=== PATIENT | male | born 1980 | race Caucasian/White ===

== ENCOUNTER 2016-06-05 18:39 | Emergency (ER) | payer MEDICAID ==
--- NOTE | 2016-06-05 19:42 | EDM.PDOC ---
ED HPI Trauma - General Chief Complaint: Lower Extremity Injury/Pain Stated Complaint: PT HURT LT ANKLE Time Seen by Provider: 06/05/16 19:36 Source: Reports: Patient History Limitations: Reports: No limitations - History of Present Illness INITIAL COMMENTS - FREE TEXT/NARRATIVE: History of present illness: [35-year-old male presenting with complaints of pain to left foot and ankle. Patient indicates that he has been having pain and swelling with this foot and ankle for greater than 3 weeks. Patient indicates that in fact when it becomes swollen that the muscles contract and pull his toes and dorsal flexion type posture it is even more painful.] Review of systems: As per history of present illness and below otherwise all systems reviewed and negative. Past medical history: As per history of present illness and as reviewed below otherwise noncontributory. Surgical history: As per history of present illness and as reviewed below otherwise noncontributory. Social history: No reported history of drug or alcohol abuse. Family history: As per history of present illness and as reviewed below otherwise noncontributory. Physical exam: HEENT: Atraumatic, normocephalic, pupils reactive, negative for conjunctival pallor or scleral icterus, mucous membranes moist, throat clear, neck supple, nontender, trachea midline. Lungs: Clear to auscultation, breath sounds equal bilaterally, chest nontender. Heart: S1S2, regular, negative for clicks, rubs, or JVD. Abdomen: Soft, nondistended, nontender. Negative for masses or hepatosplenomegaly. Negative for costovertebral tenderness. Pelvis: Stable nontender. Genitourinary: Deferred. Rectal: Deferred. Extremities: Atraumatic, negative for cords or calf pain. Neurovascular unremarkable. Neuro: Awake, alert, oriented. Cranial nerves II through XII unremarkable. Cerebellum unremarkable. Motor and sensory unremarkable throughout. Exam nonfocal. Of note peripheral pulses are palpable with DPs and PTs noted to be put presents with foot warm with CMST intact Diagnostics: [X-ray left foot] Therapeutics: [Toradol 60 mg IM] Impression: [Tarsal coalition] Plan: [Walking boot referral to orthopedic] Definitive disposition and diagnosis as appropriate pending reevaluation and review of above. Allergies/ADRs: Allergies ceftriaxone sodium [From Rocephin] Allergy (Verified 06/05/16 18:49) Hives levofloxacin [From Levaquin] Allergy (Verified 06/05/16 18:49) Cannot Remember tetanus and diphtheria toxoids [tetanus & diphtheria toxoids] Allergy (Verified 06/05/16 18:49) Swelling Home Medications: Ambulatory Orders . [No Known Home Meds] 06/05/16 [Confirmed 06/05/16] Past Medical History - Past Health History Medical/Surgical History: Denies Medical/Surgical History Cardiovascular History: Reports: None Respiratory History: Reports: Asthma Gastrointestinal History: Genitourinary History: Reports: None Musculoskeletal History: Reports: Back pain, chronic Neurological History: Reports: None Psychiatric History: Reports: Anxiety, Depression Endocrine/Metabolic History: Reports: Obesity/BMI 30+ Hematologic History: Reports: None Immunologic History: Reports: None Oncologic (Cancer) History: Reports: None Dermatologic History: Reports: None - Infectious Disease History Infectious Disease History: Reports: Chicken pox - Past Surgical History Head Surgeries/Procedures: Reports: None Other HEENT Surgeries/Procedures: facial cyst removed, ear surgery Social & Family History - Family History Family Medical History: Noncontributory - Tobacco Use Smoking Status *Q: Current Every Day Smoker Years of Tobacco use: 23 Packs/Tins Daily: 1 Second Hand Smoke Exposure: Yes - Caffeine Use Caffeine Use: Reports: Soda - Alcohol Use Days Per Week of Alcohol Use: 0 - Recreational Drug Use Recreational Drug Use: No - Living Situation & Occupation Living situation: Reports: Occupation: employed Review of Systems - Review of Systems Review Of Systems: See Below (The history of present illness) Trauma Exam - Physical Exam Exam: See Below (See history of present illness) Course - Vital Signs Last Recorded V/S: Last Vital Signs Temp 36.6 C 06/05/16 18:47 Pulse 86 06/05/16 18:47 Resp 16 06/05/16 18:47 BP 143/74 H 06/05/16 18:47 Pulse Ox 95 06/05/16 18:47 - Orders/Labs/Meds Orders: Active Orders 24 hr Category Date Time Status Ankle Min 3V Lt [CR] Stat Exams 06/05/16 18:57 Taken Meds: Medications Discontinued Medications Generic Name Dose Route Start Last Admin Trade Name Freq PRN Reason Stop Dose Admin Ketorolac Tromethamine 60 mg 06/05/16 20:16 Toradol IM 06/05/16 20:17 ONETIME ONE Departure - Departure Time of Disposition: 20:18 Disposition: Home, Self-Care 01 Condition: good 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 This information is to outline your options for follow-up care. We provide all patients seen in our emergency department with a follow-up referral. The need for follow-up, as well as the timing and circumstances, are variable depending upon the specifics of your emergency department visit. If you don't have a primary care physician on staff, we will provide you with a referral. We always advise you to contact your personal physician following an emergency department visit to inform them of the circumstance of the visit and for follow-up with them and/or the need for any referrals to a consulting specialist. The emergency department will also refer you to a specialist when appropriate. This referral assures that you have the opportunity for follow-up care with a specialist. All of these measure are taken in an effort to provide you with optimal care, which includes your follow-up. Under all circumstances we always encourage you to contact your private physician who remains a resource for coordinating your care. When calling for follow-up care, please make the office aware that this follow-up is from your recent emergency room visit. If for any reason you are refused follow-up, please contact the [facility] Emergency Department at and asked to speak to the emergency department charge nurse. Followup with primary care provider one to 2 days Take medication as directed for pain Followup with orthopedics for referral given Return to ED as needed as discussed [facility] [address], [address] [place] [address] - My Orders Last 24 Hours: My Active Orders 06/05/16 18:57 Ankle Min 3V Lt [CR] Stat - Assessment/Plan Last 24 Hours: My Active Orders 06/05/16 18:57 Ankle Min 3V Lt [CR] Stat
[2016-06-05] MEDS ORDERED: Ketorolac 60 MG/2 ML SDV IM ONE (20:16)
[2016-06-05 21:15] VITALS: BP 136/71
--- NOTE | 2016-06-06 15:55 | CR ---
EXAM DATE: 06/05/16 PATIENT'S AGE: 35 Patient: ANITA MOORE Facility: [place], [place] Site . Site : 1980 Study: XRay Extremity ankle [id number]/27/2017 7:23:20 PM Ordering Physician: Doctor Ocampo Final Report: Indication: Pain Technique: Three views of the left ankle Comparison: 12/08/2012 Findings: Bones: No acute fracture or dislocation. An indistinct subtalar joint and dorsal talar beaking again seen with apparent elongation of the anterior process of the calcaneus, concerning for tarsal coalition. A plantar calcaneal spur and a posterior calcaneal enthesophyte Joint spaces: Unremarkable. Soft tissues: Unremarkable. Impression: No acute fracture or dislocation. Findings concerning for tarsal coalition. Recommend followup evaluation. Dictated by Justin Anderson MD @ 06/05/2016 7:37:24 PM Dictated by: Justin Anderson MD @ 06/05/2016 19:37:33 (Electronic Signature) Report Signed by Proxy and Original Signed Document filed in the Medical Record. [facility]
== END 2016-06-05 21:15 | disposition home or self-care (01) ==
LOC: MW.ED 18:39
DX: Q66.89 Other specified congenital deformities of feet (principal); J45.909 Unspecified asthma, uncomplicated; F41.9 Anxiety disorder, unspecified; F32.9 Major depressive disorder, single episode, unspecified; E66.9 Obesity, unspecified; F17.210 Nicotine dependence, cigarettes, uncomplicated; Z88.1 Allergy status to other antibiotic agents; Z88.7 Allergy status to serum and vaccine
CPT/HCPCS: 73610; 96372; 99283; J1885

== ENCOUNTER 2016-08-06 00:34 | Emergency (ER) | payer MEDICAID ==
[2016-08-06] MEDS ORDERED: methylPREDNISolone Sodium Succinate 125 MG/2 ML SDV IVPUSH ONE (00:50)
[2016-08-06] MEDS ORDERED: Albuterol/Ipratropium 3.0-0.5 MG/3 ML Neb Soln NEB ONE (00:51)
[2016-08-06 01:14] LABS: CHLORIDE,CL 106 mmol/L (98-110); SODIUM,NA 139 mmol/L (136-146)
--- NOTE | 2016-08-06 01:57 | EDM.PDOC ---
ED HPI GENERAL MEDICAL PROBLEM - General Chief Complaint: Chest Pain Stated Complaint: CHEST PAIN Time Seen by Provider: 08/06/16 01:54 - History of Present Illness INITIAL COMMENTS - FREE TEXT/NARRATIVE: HISTORY AND PHYSICAL: History of present illness: Patient 36-year-old male she thinks her chest pain is vaguely described no associated nausea vomiting diaphoresis or other concern he denies trauma no fever chills or other complaints Review of systems: As per history of present illness and below otherwise all systems reviewed and negative. Past medical history: As per history of present illness and as reviewed below otherwise noncontributory. Surgical history: As per history of present illness and as reviewed below otherwise noncontributory. Social history: No reported history of drug or alcohol abuse. Family history: As per history of present illness and as reviewed below otherwise noncontributory. Physical exam: HEENT: Atraumatic, normocephalic, pupils reactive, negative for conjunctival pallor or scleral icterus, mucous membranes moist, throat clear, neck supple, nontender, trachea midline. Lungs: Scant wheezes noted, breath sounds equal bilaterally, chest nontender. Heart: S1S2, regular, negative for clicks, rubs, or JVD. Abdomen: Soft, nondistended, nontender. Negative for masses or hepatosplenomegaly. Negative for costovertebral tenderness. Pelvis: Stable nontender. Genitourinary: Deferred. Rectal: Deferred. Extremities: Atraumatic, negative for cords or calf pain. Neurovascular unremarkable. Neuro: Awake, alert, oriented. Cranial nerves II through XII unremarkable. Cerebellum unremarkable. Motor and sensory unremarkable throughout. Exam nonfocal. Diagnostics: CBC CMP troponin PT INR chest x-ray EKG Therapeutics: IV O2 monitor Impression: #1 chest pain #2 history of asthma Definitive disposition and diagnosis as appropriate pending reevaluation and review of above. - Related Data Allergies Allergy/AdvReac Type Severity Reaction Status Date / Time ceftriaxone sodium Allergy Hives Verified 08/06/16 00:50 [From Rocephin] levofloxacin [From Levaquin] Allergy Cannot Verified 08/06/16 00:50 Remember tetanus and diphtheria Allergy Swelling Verified 08/06/16 00:50 toxoids [tetanus & diphtheria toxoids] Home Meds: Home Meds . [No Known Home Meds] 02/27/17 [History] Past Medical History - Past Health History Medical/Surgical History: Denies Medical/Surgical History Cardiovascular History: Reports: None Respiratory History: Reports: Asthma Gastrointestinal History: Genitourinary History: Reports: None Musculoskeletal History: Reports: Back pain, chronic Neurological History: Reports: None Psychiatric History: Reports: Anxiety, Depression Endocrine/Metabolic History: Reports: Obesity/BMI 30+ Hematologic History: Reports: None Immunologic History: Reports: None Oncologic (Cancer) History: Reports: None Dermatologic History: Reports: None - Infectious Disease History Infectious Disease History: Reports: Chicken pox - Past Surgical History Head Surgeries/Procedures: Reports: None Other HEENT Surgeries/Procedures: facial cyst removed, ear surgery Social & Family History - Family History Family Medical History: Noncontributory - Tobacco Use Smoking Status *Q: Current Every Day Smoker Years of Tobacco use: 20 Packs/Tins Daily: 1 Second Hand Smoke Exposure: Yes - Caffeine Use Caffeine Use: Reports: Energy drinks Caffeine Use Comment: "2 every 2 weeks" - Alcohol Use Days Per Week of Alcohol Use: 0 - Recreational Drug Use Recreational Drug Use: No - Living Situation & Occupation Living situation: Reports: Occupation: employed ED ROS GENERAL - Review of Systems Review Of Systems: ROS reveals no pertinent complaints other than HPI. ED EXAM, GENERAL - Physical Exam Exam: See Below (See dictated) Course - Vital Signs Last Recorded V/S: Last Vital Signs Temp 36.0 C 08/06/16 00:46 Pulse 88 08/06/16 00:46 Resp 19 08/06/16 00:46 BP 139/90 08/06/16 00:46 Pulse Ox 100 08/06/16 00:51 - Orders/Labs/Meds Orders: Active Orders 24 hr Category Date Time Status EKG Documentation Completion [RC] STAT Care 08/06/16 00:43 Active RT Aerosol Therapy [RC] ASDIRECTED Care 08/06/16 00:51 Active Chest 1V Frontal [CR] Stat Exams 08/06/16 00:44 Taken Labs: Laboratory Tests 08/06/16 08/06/16 08/06/16 Range/Units 00:40 00:40 01:35 WBC 10.31 (4.0-11.0) K/uL RBC 5.20 (4.50-5.90) M/uL Hgb 14.5 (13.0-17.0) g/dL Hct 44.2 (38.0-50.0) % MCV 85.0 (80.0-98.0) fL MCH 27.9 (27.0-32.0) pg MCHC 32.8 (31.0-37.0) g/dL RDW Std Deviation 41.5 (28.0-62.0) fl RDW Coeff of Ayesha 13 (11.0-15.0) % Plt Count 200 (150-400) K/uL MPV 12.10 H (7.40-12.00) fL Neut % (Auto) 39.9 L (48.0-80.0) % Lymph % (Auto) 46.9 H (16.0-40.0) % [place] % (Auto) 8.3 (0.0-15.0) % Eos % (Auto) 4.7 (0.0-7.0) % Baso % (Auto) 0.2 (0.0-1.5) % Neut # (Auto) 4.1 (1.4-5.7) K/uL Lymph # (Auto) 4.8 H (0.6-2.4) K/uL [place] # (Auto) 0.9 H (0.0-0.8) K/uL Eos # (Auto) 0.5 (0.0-0.7) K/uL Baso # (Auto) 0.0 (0.0-0.1) K/uL Sodium 139 (136-146) mmol/L Potassium 3.7 (3.5-5.1) mmol/L Chloride 106 (98-110) mmol/L Carbon Dioxide 23 (21-31) mmol/L BUN 8 (6.0-23.0) mg/dL Creatinine 0.8 (0.6-1.5) mg/dL Est Cr Clr Drug Dosing TNP Estimated GFR (MDRD) > 60.0 ml/min Glucose 138 H (60-110) mg/dL Calcium 9.4 (8.8-10.8) mg/dL Total Bilirubin 0.4 (0.1-1.5) mg/dL AST 75 H (5-40) IU/L ALT 89 H (8-54) IU/L Alkaline Phosphatase 109 (40-150) Creatine Kinase 133 (9-236) IU/L Troponin I < 0.10 (0.0-0.29) NG/ML Total Protein 7.4 (6.0-8.0) g/dL Albumin 4.2 (3.5-5.0) g/dL Globulin 3.2 (2.0-3.5) g/dL Albumin/Globulin Ratio 1.3 (1.3-2.8) Meds: Medications Discontinued Medications Generic Name Dose Route Start Last Admin Trade Name Jayesh PRN Reason Stop Dose Admin Albuterol/Ipratropium 3 ml 08/06/16 00:51 08/06/16 00:58 Duoneb 3.0-0.5 Mg/3 Ml NEB 08/06/16 00:52 3 ml ONETIME ONE Administration Methylprednisolone Sodium Succinate 125 mg 08/06/16 00:50 08/06/16 00:58 Solu-Medrol IVPUSH 08/06/16 00:51 125 mg ONETIME ONE Administration Departure - Departure Time of Disposition: 01:59 Disposition: Home, Self-Care 01 Condition: good Clinical Impression: Chest pain, Asthma Forms: ED Department Discharge Additional Instructions: The following information is given to patients seen in the emergency department who are being discharged to home. This information is to outline your options for follow-up care. We provide all patients seen in our emergency department with a follow-up referral. The need for follow-up, as well as the timing and circumstances, are variable depending upon the specifics of your emergency department visit. If you don't have a primary care physician on staff, we will provide you with a referral. We always advise you to contact your personal physician following an emergency department visit to inform them of the circumstance of the visit and for follow-up with them and/or the need for any referrals to a consulting specialist. The emergency department will also refer you to a specialist when appropriate. This referral assures that you have the opportunity for followup care with a specialist. All of these measure are taken in an effort to provide you with optimal care, which includes your followup. Under all circumstances we always encourage you to contact your private physician who remains a resource for coordinating your care. When calling for followup care, please make the office aware that this follow-up is from your recent emergency room visit. If for any reason you are refused follow-up, please contact the [facility] emergency department at and asked to speak to the emergency department charge nurse. Continue current meds follow up primary medical doctor within 2 days return as needed as discussed - My Orders Last 24 Hours: My Active Orders 08/06/16 00:43 EKG Documentation Completion [RC] STAT 08/06/16 00:44 Chest 1V Frontal [CR] Stat 08/06/16 00:51 RT Aerosol Therapy [RC] ASDIRECTED - Assessment/Plan Last 24 Hours: My Active Orders 08/06/16 00:43 EKG Documentation Completion [RC] STAT 08/06/16 00:44 Chest 1V Frontal [CR] Stat 08/06/16 00:51 RT Aerosol Therapy [RC] ASDIRECTED
[2016-08-06 11:11] VITALS: BP 143/83
--- NOTE | 2016-08-06 18:52 | CR ---
EXAM DATE: 08/06/16 PATIENT'S AGE: 36 Patient: ANITA MOORE Facility: [place], [place] Site . Site : 1980 Study: XRay Chest [id number]/30/2017 1:00:15 AM Ordering Physician: Doctor Ocampo Final Report: HISTORY: Chest pain x1 hour. FINDINGS: AP portable chest radiograph demonstrates a normal cardiac silhouette. Pulmonary vasculature and xenia are normal. No lobar consolidation or pleural effusion is seen. IMPRESSION: No acute cardiopulmonary disease. Dictated by Zabrina Reich MD @ 08/06/2016 1:14:34 AM Dictated by: Zabrina Reich MD @ 08/06/2016 01:14:41 (Electronic Signature) Report Signed by Proxy. [facility]
== END 2016-08-06 02:15 | disposition home or self-care (01) ==
LOC: MW.ED 00:34
DX: R07.9 Chest pain, unspecified (principal); J45.909 Unspecified asthma, uncomplicated; F41.9 Anxiety disorder, unspecified; F32.9 Major depressive disorder, single episode, unspecified; E66.9 Obesity, unspecified; F17.210 Nicotine dependence, cigarettes, uncomplicated; Z88.1 Allergy status to other antibiotic agents; Z88.7 Allergy status to serum and vaccine
CPT/HCPCS: 71010; 80053; 82550; 84484; 85025; 93005; 94664; 96374; 99285; J2930; 99283

== ENCOUNTER 2016-10-15 00:05 | Emergency (ER) | payer MEDICAID ==
--- NOTE | 2016-10-15 00:42 | EDM.PDOC ---
ED HPI GENERAL MEDICAL PROBLEM - General Chief Complaint: Bite:Animal, Insect Stated Complaint: BITE ON LEFT KNEE Time Seen by Provider: 10/15/16 00:39 Source of Information: Reports: Patient - History of Present Illness INITIAL COMMENTS - FREE TEXT/NARRATIVE: HISTORY AND PHYSICAL: History of present illness: Patient presents with bite lesion on the left medial knee it is dark red and itching her ears no fluctuance no stinger appreciated has been itching him for a couple of days he has put Benadryl cream on without much benefit Lesion is approximately the size of a dime No fever nausea vomiting chills while sweats no lip swelling tongue swelling or oral pharyngeal edema Review of systems: As per history of present illness and below otherwise all systems reviewed and negative. Past medical history: As per history of present illness and as reviewed below otherwise noncontributory. Surgical history: As per history of present illness and as reviewed below otherwise noncontributory. Social history: No reported history of drug or alcohol abuse. Family history: As per history of present illness and as reviewed below otherwise noncontributory. Physical exam: HEENT: Atraumatic, normocephalic, pupils reactive, negative for conjunctival pallor or scleral icterus, mucous membranes moist, throat clear, neck supple, nontender, trachea midline. No lip swelling tongue swelling or oral pharyngeal edema Lungs: Clear to auscultation, breath sounds equal bilaterally, chest nontender. Heart: S1S2, regular, negative for clicks, rubs, or JVD. Abdomen: Soft, nondistended, nontender. Negative for masses or hepatosplenomegaly. Negative for costovertebral tenderness. Pelvis: Stable nontender. Genitourinary: Deferred. Rectal: Deferred. Extremities: Atraumatic, negative for cords or calf pain. Neurovascular unremarkable. Neuro: Awake, alert, oriented. Cranial nerves II through XII unremarkable. Cerebellum unremarkable. Motor and sensory unremarkable throughout. Exam nonfocal. Skin as per history of present illness otherwise unremarkable Diagnostics: [] Therapeutics: []Benadryl 50 mg every 6 hours as needed Zantac 150 milligrams by mouth twice a day as needed Keflex 500 by mouth twice a day #20 no refill Impression: []Insect bite with inflammatory reaction Definitive disposition and diagnosis as appropriate pending reevaluation and review of above. - Related Data Allergies Allergy/AdvReac Type Severity Reaction Status Date / Time ceftriaxone sodium Allergy Other Verified 10/15/16 00:30 [From Rocephin] levofloxacin [From Levaquin] Allergy Hives Verified 10/15/16 00:30 tetanus and diphtheria Allergy Swelling Verified 08/06/16 00:50 toxoids [tetanus & diphtheria toxoids] Home Meds: Home Meds . [No Known Home Meds] 06/05/16 [History] Past Medical History - Past Health History Medical/Surgical History: Denies Medical/Surgical History HEENT History: Reports: None Cardiovascular History: Reports: None Respiratory History: Reports: Asthma Gastrointestinal History: Reports: None Genitourinary History: Reports: None Musculoskeletal History: Reports: Back Pain, Chronic Neurological History: Reports: None Psychiatric History: Reports: Anxiety, Depression Endocrine/Metabolic History: Reports: Obesity/BMI 30+ Hematologic History: Reports: None Immunologic History: Reports: None Oncologic (Cancer) History: Reports: None Dermatologic History: Reports: None - Infectious Disease History Infectious Disease History: Reports: Measles, Mumps - Past Surgical History Head Surgeries/Procedures: Reports: None HEENT Surgical History: Reports: Myringotomy w Tube(s) Other GI Surgeries/Procedures: fistulotomy Social & Family History - Family History Family Medical History: Noncontributory - Tobacco Use Smoking Status *Q: Current Every Day Smoker Years of Tobacco use: 25 Packs/Tins Daily: 1 Second Hand Smoke Exposure: Yes - Caffeine Use Caffeine Use: Reports: Soda Caffeine Use Comment: 52 ounces/day - Alcohol Use Days Per Week of Alcohol Use: 0 - Recreational Drug Use Recreational Drug Use: No - Living Situation & Occupation Living situation: Reports: Occupation: Employed ED ROS GENERAL - Review of Systems Review Of Systems: ROS reveals no pertinent complaints other than HPI. ED EXAM, ANIMAL BITE - Physical Exam Exam: See Below Course - Vital Signs Last Recorded V/S: Last Vital Signs Temp 36.1 C 10/15/16 00:30 Pulse 82 10/15/16 00:30 Resp 19 10/15/16 00:30 BP 131/76 10/15/16 00:30 Pulse Ox 97 10/15/16 00:30 Departure - Departure Time of Disposition: 00:41 Disposition: Home, Self-Care 01 Condition: Good Clinical Impression: Insect bite - Discharge Information Forms: ED Department Discharge Additional Instructions: Benadryl 50 mg every 6 hours as needed Zantac 150 milligrams 2 times daily as needed Calamine lotion may benefit Keflex 500 mg by mouth twice a day #20 no refill Return if symptoms persist or worsen Follow-up with primary care in 2 weeks The following information is given to patients seen in the emergency department who are being discharged to home. This information is to outline your options for follow-up care. We provide all patients seen in our emergency department with a follow-up referral. The need for follow-up, as well as the timing and circumstances, are variable depending upon the specifics of your emergency department visit. If you don't have a primary care physician on staff, we will provide you with a referral. We always advise you to contact your personal physician following an emergency department visit to inform them of the circumstance of the visit and for follow-up with them and/or the need for any referrals to a consulting specialist. The emergency department will also refer you to a specialist when appropriate. This referral assures that you have the opportunity for follow-up care with a specialist. All of these measure are taken in an effort to provide you with optimal care, which includes your follow-up. Under all circumstances we always encourage you to contact your private physician who remains a resource for coordinating your care. When calling for follow-up care, please make the office aware that this follow-up is from your recent emergency room visit. If for any reason you are refused follow-up, please contact the [facility] emergency department at and asked to speak to the emergency department charge nurse.
== END 2016-10-15 01:10 | disposition home or self-care (01) ==
LOC: MW.ED 00:05
CPT/HCPCS: 99282

== ENCOUNTER 2016-10-17 22:58 | Emergency (ER) | payer MEDICAID ==
[2016-10-17] MEDS ORDERED: Sodium Chloride 0.9% 1,000 ML IV ONE (23:29)
[2016-10-17] MEDS ORDERED: Ondansetron 4 MG/2 ML SDV IVPUSH ONE (23:29)
[2016-10-17] MEDS ORDERED: Ketorolac 30 MG/ML SDV IVPUSH ONE (23:29)
--- NOTE | 2016-10-17 23:30 | EDM.PDOC ---
ED HPI GENERAL MEDICAL PROBLEM - General Chief Complaint: Neuro Symptoms/Deficits Stated Complaint: PT HAS BLURRED VISION Time Seen by Provider: 10/17/16 23:29 Source of Information: Reports: Patient - History of Present Illness INITIAL COMMENTS - FREE TEXT/NARRATIVE: HISTORY AND PHYSICAL: History of present illness: []Patient has right unilateral headache over the last 3 days it has improved with ibuprofen to resolved along with sleep, some light noise sensitivity generally beginning with aura of visualizing white triangles as well as spots and floaters Headache is 4 out of 10 right unilateral none radiating No fever nausea vomiting chills sweats no chest pain shortness of breath dizziness or palpitation no bowel or urine symptoms Review of systems: As per history of present illness and below otherwise all systems reviewed and negative. Past medical history: As per history of present illness and as reviewed below otherwise noncontributory. Surgical history: As per history of present illness and as reviewed below otherwise noncontributory. Social history: No reported history of drug or alcohol abuse. Family history: As per history of present illness and as reviewed below otherwise noncontributory. Physical exam: HEENT: Atraumatic, normocephalic, pupils reactive, negative for conjunctival pallor or scleral icterus, mucous membranes moist, throat clear, neck supple, nontender, trachea midline. Lungs: Clear to auscultation, breath sounds equal bilaterally, chest nontender. Heart: S1S2, regular, negative for clicks, rubs, or JVD. Abdomen: Soft, nondistended, nontender. Negative for masses or hepatosplenomegaly. Negative for costovertebral tenderness. Pelvis: Stable nontender. Genitourinary: Deferred. Rectal: Deferred. Extremities: Atraumatic, negative for cords or calf pain. Neurovascular unremarkable. Neuro: Awake, alert, oriented. Cranial nerves II through XII unremarkable. Cerebellum unremarkable. Motor and sensory unremarkable throughout. Exam nonfocal. Diagnostics: []CBC, CMP, UA Head CT Therapeutics: []1 L normal saline bolus Zofran 8 mg IV Toradol 30 mg IV Patient generally requires spectacles but does not use them Follow-up with senior grant writer and primary care Impression: []Migraine with aura Definitive disposition and diagnosis as appropriate pending reevaluation and review of above. Right side headache Pain Score (Numeric/FACES): 5 - Related Data Allergies Allergy/AdvReac Type Severity Reaction Status Date / Time ceftriaxone sodium Allergy Other Verified 10/17/16 23:17 [From Rocephin] levofloxacin [From Levaquin] Allergy Hives Verified 10/17/16 23:17 tetanus and diphtheria Allergy Swelling Verified 10/17/16 23:17 toxoids [tetanus & diphtheria toxoids] Home Meds: Home Meds . [No Known Home Meds] 06/05/16 [History] Past Medical History - Past Health History Medical/Surgical History: Denies Medical/Surgical History HEENT History: Reports: Impaired Vision Cardiovascular History: Reports: None Respiratory History: Reports: Asthma Gastrointestinal History: Reports: None Genitourinary History: Reports: None Musculoskeletal History: Reports: Back Pain, Chronic Neurological History: Reports: Migraines, Seizure Psychiatric History: Reports: Anxiety, Depression Endocrine/Metabolic History: Reports: Obesity/BMI 30+ Hematologic History: Reports: None Immunologic History: Reports: None Oncologic (Cancer) History: Reports: None Dermatologic History: Reports: None - Infectious Disease History Infectious Disease History: Reports: Measles, Mumps - Past Surgical History Head Surgeries/Procedures: Reports: None HEENT Surgical History: Reports: Myringotomy w Tube(s) Other GI Surgeries/Procedures: fistulotomy Social & Family History - Family History Family Medical History: Noncontributory - Tobacco Use Smoking Status *Q: Current Every Day Smoker Years of Tobacco use: 20 Packs/Tins Daily: 1 Second Hand Smoke Exposure: Yes - Caffeine Use Caffeine Use: Reports: Soda Caffeine Use Comment: 52 ounces/day - Alcohol Use Days Per Week of Alcohol Use: 0 - Recreational Drug Use Recreational Drug Use: No - Living Situation & Occupation Living situation: Reports: Occupation: Employed ED ROS GENERAL - Review of Systems Review Of Systems: ROS reveals no pertinent complaints other than HPI. ED EXAM, GENERAL - Physical Exam Exam: See Below Course - Vital Signs Last Recorded V/S: Last Vital Signs Temp 36.4 C 10/17/16 23:18 Pulse 85 10/17/16 23:18 Resp 18 10/17/16 23:18 BP 138/91 H 10/17/16 23:18 Pulse Ox 97 10/17/16 23:18 - Orders/Labs/Meds Orders: Active Orders 24 hr Category Date Time Status Head wo Cont [CT] Stat Exams 10/17/16 23:29 Taken Meds: Medications Discontinued Medications Generic Name Dose Route Start Last Admin Trade Name Jayesh PRN Reason Stop Dose Admin Sodium Chloride 1,000 mls @ 999 mls/hr 10/17/16 23:29 10/17/16 23:40 Normal Saline IV 10/18/16 00:29 999 mls/hr STAT ONE Administration Ketorolac Tromethamine 30 mg 10/17/16 23:29 10/17/16 23:45 Toradol IVPUSH 10/17/16 23:30 30 mg ONETIME ONE Administration Ondansetron HCl 8 mg 10/17/16 23:29 10/17/16 23:40 Zofran IVPUSH 10/17/16 23:30 8 mg ONETIME ONE Administration Departure - Departure Time of Disposition: 00:29 Disposition: Home, Self-Care 01 Condition: Good Clinical Impression: Migraine - Discharge Information Forms: ED Department Discharge Additional Instructions: Continue ibuprofen as needed Sometimes caffeine may benefit such as drinking a Coke or cup of coffee Follow-up with primary care in 2 weeks sooner as needed as there are more specific treatments for migraine Recommend following up with senior grant writer for a new prescription as this may contribute as well The following information is given to patients seen in the emergency department who are being discharged to home. This information is to outline your options for follow-up care. We provide all patients seen in our emergency department with a follow-up referral. The need for follow-up, as well as the timing and circumstances, are variable depending upon the specifics of your emergency department visit. If you don't have a primary care physician on staff, we will provide you with a referral. We always advise you to contact your personal physician following an emergency department visit to inform them of the circumstance of the visit and for follow-up with them and/or the need for any referrals to a consulting specialist. The emergency department will also refer you to a specialist when appropriate. This referral assures that you have the opportunity for follow-up care with a specialist. All of these measure are taken in an effort to provide you with optimal care, which includes your follow-up. Under all circumstances we always encourage you to contact your private physician who remains a resource for coordinating your care. When calling for follow-up care, please make the office aware that this follow-up is from your recent emergency room visit. If for any reason you are refused follow-up, please contact the [facility] emergency department at and asked to speak to the emergency department charge nurse. - My Orders Last 24 Hours: My Active Orders 10/17/16 23:29 Head wo Cont [CT] Stat - Assessment/Plan Last 24 Hours: My Active Orders 10/17/16 23:29 Head wo Cont [CT] Stat
[2016-10-18 00:41] VITALS: BP 116/60
--- NOTE | 2016-10-18 10:52 | CT ---
EXAM DATE: 10/17/16 PATIENT'S AGE: 36 Patient: ANITA MOORE Facility: [place], [place] Site . Site : 1980 Study: CT Head [id number]/[id number] 12:14:41 AM Ordering Physician: Doctor Ocampo Final Report: INDICATION: Blurred vision, headache TECHNIQUE: CT head without contrast. COMPARISON: None FINDINGS: CSF spaces: Within normal limits for age. Brain parenchyma: The corona-white differentiation is normal. No sign of mass, hemorrhage, or midline shift. Skull base and calvarium: The visualized paranasal sinuses and mastoid air cells demonstrate no acute or significant findings. The visualized orbits are grossly unremarkable. No skull fractures. IMPRESSION: Unremarkable noncontrast head CT. Please note that all CT scans at this facility use dose modulation, iterative reconstruction, and/or weight-based dosing when appropriate to reduce radiation dose to as low as reasonably achievable. Dictated by Sondra Knight MD @ Oct 18 2016 12:20AM (Electronic Signature) Report Signed by Proxy. RODRIGO
== END 2016-10-18 00:45 | disposition home or self-care (01) ==
LOC: MW.ED 22:58
DX: G43.109 Migraine with aura, not intractable, without status migrainosus (principal); J45.909 Unspecified asthma, uncomplicated; F17.210 Nicotine dependence, cigarettes, uncomplicated; E66.9 Obesity, unspecified; Z96.22 Myringotomy tube(s) status; Z88.7 Allergy status to serum and vaccine; Z98.890 Other specified postprocedural states; Z88.1 Allergy status to other antibiotic agents
CPT/HCPCS: 70450; 96361; 96374; 96375; 99284; J1885; J2405; J7040; 99283

== ENCOUNTER 2017-01-12 15:12 | Emergency (ER) | payer MEDICAID ==
[2017-01-12 15:27] VITALS: BP 144/82
--- NOTE | 2017-01-12 16:29 | EDM.PDOC ---
ED HPI GENERAL MEDICAL PROBLEM - General Chief Complaint: Bite:Animal, Insect Stated Complaint: SPIDER BITE Time Seen by Provider: 01/12/17 15:51 - History of Present Illness INITIAL COMMENTS - FREE TEXT/NARRATIVE: HISTORY AND PHYSICAL: History of present illness: The patient is a 36-year-old male with no significant past medical history who is a transgender male and presents with complaints of possible bug bite to the area adjacent to his scrotum on the right that happened 5-6 days ago. The patient says he recalls the pain she like sensation at the onset but there was no redness or swelling and over the last few days it has gotten more swollen. He tried to squeeze the area last evening and nothing came out. He has no testicular pain or swelling no swelling of lymph nodes and no new redness is noted in the region. Patient states he does have chafing of the inner thighs which is not new or different. He has no systemic complaints of fever chills nausea vomiting diarrhea or dysuria says he's had some diffuse muscle aches and pains over the last 24 hours. Review of systems: As per history of present illness and below otherwise all systems reviewed and negative. Past medical history: As per history of present illness and as reviewed below otherwise noncontributory. Surgical history: As per history of present illness and as reviewed below otherwise noncontributory. Social history: No reported history of drug or alcohol abuse. Family history: As per history of present illness and as reviewed below otherwise noncontributory. Physical exam: General: Well-developed well-nourished man who is nontoxic and vital signs have been reviewed by me. HEENT: Atraumatic, normocephalic, negative for conjunctival pallor or scleral icterus, mucous membranes moist, throat clear, neck supple, nontender, trachea midline. Lungs: Clear to auscultation, breath sounds equal bilaterally, chest nontender. Heart: S1S2, regular in rhythm no overt murmurs Abdomen: Soft, nondistended, nontender. NABS Pelvis: Stable nontender. Genitourinary: Testicles are small and descended bilaterally and there is no evidence of any redness or erythema or induration of the scrotum bilaterally. Just to the right of the scrotum there is a small open area with some fibrinous material seen and at the surround there is a walnut-sized area of induration which is nonfluctuant and minimally tender. There is no inguinal adenopathy. This area is very well demarcated and does not extend into the gross perineum and there is no perineal erythema and there is no crepitance in this area. There is no extension of this induration into the perineum. There is some chronic skin changes seen throughout the peritoneum indicative of more of a candidal like reaction and the patient says that this is not new Rectal: Deferred. Extremities: Atraumatic, negative for cords or calf pain. Neurovascular unremarkable. Neuro: Awake, alert, oriented. Cranial nerves II through XII unremarkable. Cerebellum unremarkable. Motor and sensory unremarkable throughout. Exam nonfocal. Diagnostics: [] Therapeutics: [] I discussed with the patient wound care and conservative management including antibiotics its baths and return to ER if the area comes up more to a head to allow incision and drainage. At this point there is no fluctuance and no signs of any gross infection and ID will likely not be beneficial but I have warned the patient that with antibiotics this could change and if it starts coming up more to a soft head that he should return immediately for I&D. He states understanding. Impression: Perineal/ lateral scrotal cellulitis/induration early abscess Definitive disposition and diagnosis as appropriate pending reevaluation and review of above. Perineal Area Pain Score (Numeric/FACES): 8 - Related Data Allergies Allergy/AdvReac Type Severity Reaction Status Date / Time ceftriaxone sodium Allergy Other Verified 01/12/17 15:27 [From Rocephin] levofloxacin [From Levaquin] Allergy Hives Verified 01/12/17 15:27 tetanus and diphtheria Allergy Swelling Verified 01/12/17 15:27 toxoids [tetanus & diphtheria toxoids] Home Meds: Home Meds Estradiol Cypionate 1 gm IM WEEKLY 01/12/17 [History] Spironolactone [Aldactone] 25 mg PO DAILY 01/12/17 [History] Past Medical History - Past Health History Medical/Surgical History: Denies Medical/Surgical History HEENT History: Reports: Impaired Vision Cardiovascular History: Reports: None Respiratory History: Reports: Asthma Gastrointestinal History: Reports: None Genitourinary History: Reports: None Musculoskeletal History: Reports: Back Pain, Chronic Neurological History: Reports: Migraines, Seizure Psychiatric History: Reports: Anxiety, Depression Endocrine/Metabolic History: Reports: Obesity/BMI 30+ Hematologic History: Reports: None Immunologic History: Reports: None Oncologic (Cancer) History: Reports: None Dermatologic History: Reports: None - Infectious Disease History Infectious Disease History: Reports: Chicken Pox, Measles, Mumps - Past Surgical History Head Surgeries/Procedures: Reports: None HEENT Surgical History: Reports: Myringotomy w Tube(s) GI Surgical History: Reports: Other (See Below) Other GI Surgeries/Procedures: fistulotomy Social & Family History - Family History Family Medical History: Noncontributory - Tobacco Use Smoking Status *Q: Current Every Day Smoker Years of Tobacco use: 24 Packs/Tins Daily: 1 Second Hand Smoke Exposure: Yes - Caffeine Use Caffeine Use: Reports: Energy Drinks, Soda Caffeine Use Comment: 52 ounces/day - Alcohol Use Days Per Week of Alcohol Use: 0 - Recreational Drug Use Recreational Drug Use: No - Living Situation & Occupation Living situation: Reports: Occupation: Employed ED ROS GENERAL - Review of Systems Review Of Systems: ROS reveals no pertinent complaints other than HPI. ED EXAM, ANIMAL BITE - Physical Exam Exam: See Below (See dictation) Course - Vital Signs Last Recorded V/S: Last Vital Signs Temp 34.8 C L 01/12/17 15:23 Pulse 114 H 01/12/17 15:23 Resp 12 01/12/17 15:23 BP 144/82 H 01/12/17 15:23 Pulse Ox 96 01/12/17 15:23 Departure - Departure Time of Disposition: 16:29 Disposition: Home, Self-Care 01 Condition: Good Clinical Impression: Cellulitis Qualifiers: Site of cellulitis: other site Qualified Code(s): L03.818 - Cellulitis of other sites - Discharge Information Referrals: PCP,None [Primary Care Provider] - Additional Instructions: The following information is given to patients seen in the emergency department who are being discharged to home. This information is to outline your options for follow-up care. We provide all patients seen in our emergency department with a follow-up referral. The need for follow-up, as well as the timing and circumstances, are variable depending upon the specifics of your emergency department visit. If you don't have a primary care physician on staff, we will provide you with a referral. We always advise you to contact your personal physician following an emergency department visit to inform them of the circumstance of the visit and for follow-up with them and/or the need for any referrals to a consulting specialist. The emergency department will also refer you to a specialist when appropriate. This referral assures that you have the opportunity for followup care with a specialist. All of these measure are taken in an effort to provide you with optimal care, which includes your followup. Under all circumstances we always encourage you to contact your private physician who remains a resource for coordinating your care. When calling for followup care, please make the office aware that this follow-up is from your recent emergency room visit. If for any reason you are refused follow-up, please contact the [facility] emergency department at and ask to speak to the emergency department charge nurse. [facility] Primary care- Internal Medicine and Family [address] [address] Please cleanse the area as we discussed and try to keep it open to air as much as possible. Do not manipulate the area or squeeze it. Take medications as prescribed and if the area seems to be coming up to a head return to ER for drainage. Please return to ER as needed and as we discussed.
== END 2017-01-12 16:46 | disposition home or self-care (01) ==
LOC: MW.ED 15:12
DX: L03.315 Cellulitis of perineum (principal); N49.2 Inflammatory disorders of scrotum; E66.9 Obesity, unspecified; Z88.1 Allergy status to other antibiotic agents; Z79.899 Other long term (current) drug therapy; J45.909 Unspecified asthma, uncomplicated; F17.210 Nicotine dependence, cigarettes, uncomplicated; Z68.36 Body mass index [BMI] 36.0-36.9, adult
CPT/HCPCS: 99283

== ENCOUNTER 2017-03-01 20:38 | Emergency (ER) | payer MEDICAID ==
--- NOTE | 2017-03-01 21:12 | EDM.PDOC ---
ED HPI GENERAL MEDICAL PROBLEM - General Chief Complaint: Diabetic Complaint Stated Complaint: PT BLOOD SUGAR HIGH Time Seen by Provider: 03/01/17 21:08 - History of Present Illness INITIAL COMMENTS - FREE TEXT/NARRATIVE: HISTORY AND PHYSICAL: History of present illness: Patient 36-year-old white male who presents with a concern of recently diagnosed diabetes for medical screening exam patient denies any concern Review of systems: As per history of present illness and below otherwise all systems reviewed and negative. Past medical history: As per history of present illness and as reviewed below otherwise noncontributory. Surgical history: As per history of present illness and as reviewed below otherwise noncontributory. Social history: No reported history of drug or alcohol abuse. Family history: As per history of present illness and as reviewed below otherwise noncontributory. Physical exam: HEENT: Atraumatic, normocephalic, pupils reactive, negative for conjunctival pallor or scleral icterus, mucous membranes moist, throat clear, neck supple, nontender, trachea midline. Lungs: Clear to auscultation, breath sounds equal bilaterally, chest nontender. Heart: S1S2, regular, negative for clicks, rubs, or JVD. Abdomen: Soft, nondistended, nontender. Negative for masses or hepatosplenomegaly. Negative for costovertebral tenderness. Pelvis: Stable nontender. Genitourinary: Deferred. Rectal: Deferred. Extremities: Atraumatic, negative for cords or calf pain. Neurovascular unremarkable. Neuro: Awake, alert, oriented. Cranial nerves II through XII unremarkable. Cerebellum unremarkable. Motor and sensory unremarkable throughout. Exam nonfocal. Diagnostics: Blood glucose on arrival 201 Therapeutics: None Impression: 1 medical screening exam #2 history of newly diagnosed diabetes Definitive disposition and diagnosis as appropriate pending reevaluation and review of above. - Related Data Allergies Allergy/AdvReac Type Severity Reaction Status Date / Time ceftriaxone sodium Allergy Other Verified 01/12/17 15:27 [From Rocephin] levofloxacin [From Levaquin] Allergy Hives Verified 01/12/17 15:27 tetanus and diphtheria Allergy Swelling Verified 01/12/17 15:27 toxoids [tetanus & diphtheria toxoids] Home Meds: Home Meds Estradiol Cypionate 1 gm IM WEEKLY 01/12/17 [History] Spironolactone [Aldactone] 25 mg PO DAILY 01/12/17 [History] Progesterone,Micronized [Prometrium] 100 mg PO DAILY 03/01/17 [History] Past Medical History - Past Health History Medical/Surgical History: Denies Medical/Surgical History HEENT History: Reports: Impaired Vision Cardiovascular History: Reports: High Cholesterol Respiratory History: Reports: Asthma Gastrointestinal History: Reports: None Genitourinary History: Reports: None Musculoskeletal History: Reports: Back Pain, Chronic Neurological History: Reports: Migraines, Seizure Psychiatric History: Reports: Anxiety, Depression Endocrine/Metabolic History: Reports: Diabetes, Type II, Obesity/BMI 30+ Hematologic History: Reports: None Immunologic History: Reports: None Oncologic (Cancer) History: Reports: None Dermatologic History: Reports: None - Infectious Disease History Infectious Disease History: Reports: Chicken Pox, Measles, Mumps - Past Surgical History Head Surgeries/Procedures: Reports: None HEENT Surgical History: Reports: Myringotomy w Tube(s) GI Surgical History: Reports: Other (See Below) Other GI Surgeries/Procedures: fistulotomy x2 Social & Family History - Family History Family Medical History: Noncontributory - Tobacco Use Smoking Status *Q: Current Every Day Smoker Years of Tobacco use: 24 Packs/Tins Daily: 1 Second Hand Smoke Exposure: Yes - Caffeine Use Caffeine Use: Reports: Energy Drinks, Soda Caffeine Use Comment: 52 ounces/day - Alcohol Use Days Per Week of Alcohol Use: 0 - Recreational Drug Use Recreational Drug Use: No - Living Situation & Occupation Living situation: Reports: Occupation: Employed ED ROS GENERAL - Review of Systems Review Of Systems: ROS reveals no pertinent complaints other than HPI. ED EXAM GENERAL NO PERIP PULSE - Physical Exam Exam: See Below (dictation) Course - Vital Signs Last Recorded V/S: Last Vital Signs Temp 36.2 C 03/01/17 20:55 Pulse 105 H 03/01/17 20:55 Resp 16 03/01/17 20:55 BP 134/76 03/01/17 20:55 Pulse Ox 94 L 03/01/17 20:55 Departure - Departure Time of Disposition: 21:11 Disposition: Home, Self-Care 01 Condition: Good Clinical Impression: Encounter for medical screening examination, Hyperglycemia - Discharge Information Referrals: PCP,None [Primary Care Provider] - Additional Instructions: The following information is given to patients seen in the emergency department who are being discharged to home. This information is to outline your options for follow-up care. We provide all patients seen in our emergency department with a follow-up referral. The need for follow-up, as well as the timing and circumstances, are variable depending upon the specifics of your emergency department visit. If you don't have a primary care physician on staff, we will provide you with a referral. We always advise you to contact your personal physician following an emergency department visit to inform them of the circumstance of the visit and for follow-up with them and/or the need for any referrals to a consulting specialist. The emergency department will also refer you to a specialist when appropriate. This referral assures that you have the opportunity for followup care with a specialist. All of these measure are taken in an effort to provide you with optimal care, which includes your followup. Under all circumstances we always encourage you to contact your private physician who remains a resource for coordinating your care. When calling for followup care, please make the office aware that this follow-up is from your recent emergency room visit. If for any reason you are refused follow-up, please contact the [facility] emergency department at and asked to speak to the emergency department charge nurse. [facility] Primary [facility] [address] [place] [id number] Follow-up primary medical doctor and/or clinic above diet as discussed return as needed as discussed]
[2017-03-01 21:21] VITALS: BP 112/72
== END 2017-03-01 21:19 | disposition home or self-care (01) ==
LOC: EDSEX → MW.ED 20:38
DX: E11.65 Type 2 diabetes mellitus with hyperglycemia (principal); E78.00 Pure hypercholesterolemia, unspecified; F17.210 Nicotine dependence, cigarettes, uncomplicated; Z79.899 Other long term (current) drug therapy; Z88.1 Allergy status to other antibiotic agents; Z88.7 Allergy status to serum and vaccine
CPT/HCPCS: 82962; 99283

== ENCOUNTER 2017-03-06 11:51 | Emergency (ER) | payer MEDICAID, OTHER ==
--- NOTE | 2017-03-06 12:10 | EDM.PDOC ---
ED HPI GENERAL MEDICAL PROBLEM - General Chief Complaint: General Stated Complaint: FISTULA Time Seen by Provider: 03/06/17 11:52 Source of Information: Reports: Patient History Limitations: Reports: No Limitations - History of Present Illness INITIAL COMMENTS - FREE TEXT/NARRATIVE: History of present illness: []Patient is a transgender male who has a history of fistulectomy in August 2015. Patient started feeling increasing pain 2 days ago with fevers. Patient has not had a fever today but recognizes her symptoms and came in for check today. Review of systems: As per history of present illness and below otherwise all systems reviewed and negative. Past medical history: As per history of present illness and as reviewed below otherwise noncontributory. Surgical history: As per history of present illness and as reviewed below otherwise noncontributory. Social history: No reported history of drug or alcohol abuse. Family history: As per history of present illness and as reviewed below otherwise noncontributory. Physical exam: General: Well developed, well nourished in NAD HEENT: Atraumatic, normocephalic, pupils reactive, negative for conjunctival pallor or scleral icterus, mucous membranes moist, throat clear, neck supple, nontender, trachea midline. Lungs: Clear to auscultation, breath sounds equal bilaterally, chest nontender. Heart: S1S2, regular, negative for clicks, rubs, or JVD. Abdomen: Soft, nondistended, nontender. Negative for masses or hepatosplenomegaly. Negative for costovertebral tenderness. Pelvis: Stable nontender. Genitourinary: Deferred. Rectal: Right cheek superficial erythematous area approximately 4 x 4 centimeters with a half centimeter area of fluctuance without drainage. Extremities: Atraumatic, negative for cords or calf pain. Neurovascular unremarkable. Neuro: Awake, alert, oriented. Cranial nerves II through XII unremarkable. Cerebellum unremarkable. Motor and sensory unremarkable throughout. Exam nonfocal. Diagnostics: []CBC and blood cultures ordered wound culture was also sent of purulent fluid from needle aspirate of the abscess Therapeutics: [] Impression: []Abscess buttock right cheek Plan: []Sitz baths and Augmentin follow-up with PMD. Definitive disposition and diagnosis as appropriate pending reevaluation and review of above. Right Perineal Area Pain Score (Numeric/FACES): 7 - Related Data Allergies Allergy/AdvReac Type Severity Reaction Status Date / Time ceftriaxone sodium Allergy Other Verified 03/06/17 11:58 [From Rocephin] levofloxacin [From Levaquin] Allergy Hives Verified 03/06/17 11:58 tetanus and diphtheria Allergy Swelling Verified 03/06/17 11:58 toxoids [tetanus & diphtheria toxoids] Home Meds: Home Meds Estradiol Cypionate 1 gm IM WEEKLY 01/12/17 [History] Spironolactone [Aldactone] 25 mg PO DAILY 01/12/17 [History] Progesterone,Micronized [Prometrium] 100 mg PO DAILY 03/01/17 [History] Amoxicillin/Potassium Clav [Augmentin 875-125 Tablet] 1 each PO BID #20 tablet 03/06/17 [Rx] atorvaSTATin [Lipitor] 40 mg PO BEDTIME 03/06/17 [History] Past Medical History - Past Health History Medical/Surgical History: Denies Medical/Surgical History HEENT History: Reports: Impaired Vision Cardiovascular History: Reports: High Cholesterol Respiratory History: Reports: Asthma Gastrointestinal History: Reports: None Genitourinary History: Reports: None Musculoskeletal History: Reports: Back Pain, Chronic Neurological History: Reports: Migraines, Seizure Psychiatric History: Reports: Anxiety, Depression Endocrine/Metabolic History: Reports: Diabetes, Type II, Obesity/BMI 30+ Hematologic History: Reports: None Immunologic History: Reports: None Oncologic (Cancer) History: Reports: None Dermatologic History: Reports: None - Infectious Disease History Infectious Disease History: Reports: Chicken Pox, Measles, Mumps - Past Surgical History Head Surgeries/Procedures: Reports: None HEENT Surgical History: Reports: Myringotomy w Tube(s) GI Surgical History: Reports: Other (See Below) Other GI Surgeries/Procedures: fistulotomy x2 Social & Family History - Family History Family Medical History: Noncontributory - Tobacco Use Smoking Status *Q: Current Every Day Smoker Years of Tobacco use: 15 Packs/Tins Daily: 1 Second Hand Smoke Exposure: Yes - Caffeine Use Caffeine Use: Reports: Soda Caffeine Use Comment: 52 ounces/day - Alcohol Use Days Per Week of Alcohol Use: 0 - Recreational Drug Use Recreational Drug Use: No - Living Situation & Occupation Living situation: Reports: Occupation: Employed ED ROS GENERAL - Review of Systems Review Of Systems: See Below (See history of present illness) ED EXAM, GENERAL - Physical Exam Exam: See Below (See history of present illness) Course - Vital Signs Last Recorded V/S: Last Vital Signs Temp 36.1 C 03/06/17 12:04 Pulse 91 03/06/17 12:04 Resp 18 03/06/17 12:04 BP 138/80 03/06/17 12:04 Pulse Ox 99 03/06/17 12:04 - Orders/Labs/Meds Orders: Active Orders 24 hr Category Date Time Status BASIC METABOLIC PANEL,BMP [CHEM] Stat Lab 03/06/17 12:21 Received CBC WITH AUTO DIFF [HEME] Stat Lab 03/06/17 12:21 Received CULTURE BLOOD [BC] Stat Lab 03/06/17 12:11 Ordered CULTURE BLOOD [BC] Stat Lab 03/06/17 12:21 Received CULTURE WOUND [RM] Stat Lab 03/06/17 12:38 Uncollected Blood Culture x2 Reflex Set [OM.PC] Stat Oth 03/06/17 12:11 Ordered Meds: Medications Discontinued Medications Generic Name Dose Route Start Last Admin Trade Name Jayesh PRN Reason Stop Dose Admin Bupivacaine HCl 10 ml 03/06/17 12:27 03/06/17 12:36 Sensorcaine-Mpf 0.5% INJECT 03/06/17 12:28 10 ml ONETIME ONE Administration Lidocaine HCl 20 ml 03/06/17 12:27 03/06/17 12:36 Xylocaine 1% INJECT 03/06/17 12:28 20 ml ONETIME ONE Administration Departure - Departure Time of Disposition: 12:42 Disposition: Home, Self-Care 01 Condition: Good Clinical Impression: Abscess of buttock, right - Discharge Information Prescriptions: Amoxicillin/Potassium Clav [Augmentin 875-125 Tablet] 1 each PO BID #20 tablet Referrals: PCP,None [Primary Care Provider] - Forms: ED Department Discharge Additional Instructions: The following information is given to patients seen in the emergency department who are being discharged to home. This information is to outline your options for follow-up care. We provide all patients seen in our emergency department with a follow-up referral. The need for follow-up, as well as the timing and circumstances, are variable depending upon the specifics of your emergency department visit. If you don't have a primary care physician on staff, we will provide you with a referral. We always advise you to contact your personal physician following an emergency department visit to inform them of the circumstance of the visit and for follow-up with them and/or the need for any referrals to a consulting specialist. The emergency department will also refer you to a specialist when appropriate. This referral assures that you have the opportunity for follow-up care with a specialist. All of these measure are taken in an effort to provide you with optimal care, which includes your follow-up. Under all circumstances we always encourage you to contact your private physician who remains a resource for coordinating your care. When calling for follow-up care, please make the office aware that this follow-up is from your recent emergency room visit. If for any reason you are refused follow-up, please contact the [facility] at and asked to speak to the emergency department charge nurse. Continue sitz baths, take Augmentin as directed return here if symptoms change or worsen otherwise follow-up with primary care. [facility] [address] [place] [id number] - My Orders Last 24 Hours: My Active Orders 03/06/17 12:11 CULTURE BLOOD [BC] Stat Blood Culture x2 Reflex Set [OM.PC] Stat 03/06/17 12:21 BASIC METABOLIC PANEL,BMP [CHEM] Stat CBC WITH AUTO DIFF [HEME] Stat CULTURE BLOOD [BC] Stat 03/06/17 12:38 CULTURE WOUND [RM] Stat - Assessment/Plan Last 24 Hours: My Active Orders 03/06/17 12:11 CULTURE BLOOD [BC] Stat Blood Culture x2 Reflex Set [OM.PC] Stat 03/06/17 12:21 BASIC METABOLIC PANEL,BMP [CHEM] Stat CBC WITH AUTO DIFF [HEME] Stat CULTURE BLOOD [BC] Stat 03/06/17 12:38 CULTURE WOUND [RM] Stat
[2017-03-06] MEDS ORDERED: Lidocaine 1% 20 ML MDV INJECT ONE (12:27)
[2017-03-06] MEDS ORDERED: Bupivacaine 0.5% 10 ML SDV INJECT ONE (12:27)
[2017-03-06 12:58] LABS: CHLORIDE,CL 105 mmol/L (98-110); SODIUM,NA 135 mmol/L (136-146)
[2017-03-06 12:59] VITALS: BP 129/84
== END 2017-03-06 12:51 | disposition home or self-care (01) ==
LOC: EDSEX → MW.ED 11:51
DX: L02.31 Cutaneous abscess of buttock (principal); E11.9 Type 2 diabetes mellitus without complications; F17.210 Nicotine dependence, cigarettes, uncomplicated; Z88.1 Allergy status to other antibiotic agents; Z79.899 Other long term (current) drug therapy
CPT/HCPCS: 36415; 80048; 85025; 87040; 87070; 99283; 99284

== ENCOUNTER 2017-04-13 07:40 | Day surgery (SDC) | payer MEDICAID ==
[~2017-04-13 07:40] MED LIST: Bupivacaine 0.5% 10 ML SDV ONE; Lactated Ringers 1,000 ML IV SCH
--- NOTE | 2017-04-13 08:29 | PCM.PREANE ---
Preanesthetic Assessment - Anesthesia/Transfusion/Family Hx Anesthesia History: Prior Anesthesia Without Reaction Family History of Anesthesia Reaction: No Transfusion History: No Prior Transfusion(s) Intubation History: Unknown - Review of Systems General: No Symptoms Pulmonary: No Symptoms Cardiovascular: No Symptoms Gastrointestinal: No Symptoms Neurological: No Symptoms Other: Reports: None - Physical Assessment Height: 1.85 m Weight: 127.913 kg ASA Class: 3 Mental Status: Alert & Oriented x3 Airway Class: Mallampati = 2 Dentition: Reports: Broken Tooth/Teeth (multiple), Missing Tooth/Teeth (multiple ) Thyro-Mental Finger Breadths: 3 Mouth Opening Finger Breadths: 3 ROM/Head Extension: Full Lungs: Clear to Auscultation, Normal Respiratory Effort Cardiovascular: Regular Rate, Regular Rhythm - Allergies Allergies/Adverse Reactions: Allergies Allergy/AdvReac Type Severity Reaction Status Date / Time ceftriaxone sodium Allergy Cannot Verified 04/10/17 13:00 [From Rocephin] Remember levofloxacin [From Levaquin] Allergy Hives Verified 04/10/17 13:00 tetanus and diphtheria Allergy Swelling Verified 04/10/17 13:00 toxoids [tetanus & diphtheria toxoids] - Blood Blood Available: No - Anesthesia Plan Pre-Op Medication Ordered: None - Acknowledgements Anesthesia Type Planned: General Anesthesia Pt an Appropriate Candidate for the Planned Anesthesia: Yes Alternatives and Risks of Anesthesia Discussed w Pt/Guardian: Yes Pt/Guardian Understands and Agrees with Anesthesia Plan: Yes PreAnesthesia Questionnaire - Past Health History Medical/Surgical History: Denies Medical/Surgical History HEENT History: Reports: Impaired Vision Cardiovascular History: Reports: High Cholesterol, Hypertension Respiratory History: Reports: Asthma, COPD Other Respiratory History: has daily inhaler Gastrointestinal History: Reports: Other (See Below) (recurrent rectal fistula) Genitourinary History: Reports: UTI, Recurrent Other Genitourinary History: in the past- not the last 2 years Musculoskeletal History: Reports: Arthritis, Fracture, Other (See Below) Other Musculoskeletal History: hx of fx left elbow, has frequent legs cramps Neurological History: Reports: Concussion, Seizure Other Neuro History: hx of seizures 10 years ago- stopped- none since- no medication Psychiatric History: Reports: Anxiety, Depression, Suicide Attempt, Other (See Below) Other Psychiatric History: states is transgender Endocrine/Metabolic History: Reports: Diabetes, Type II, Obesity/BMI 30+ Hematologic History: Reports: None Immunologic History: Reports: None Oncologic (Cancer) History: Reports: None Dermatologic History: Reports: None - Infectious Disease History Infectious Disease History: Reports: Chicken Pox, Measles, Mumps - Past Surgical History HEENT Surgical History: Reports: Myringotomy w Tube(s) GI Surgical History: Reports: Other (See Below) Other GI Surgeries/Procedures: anal surgery for recurrent fistula - SUBSTANCE USE Smoking Status *Q: Current Every Day Smoker (< 1 ppd) Tobacco Use Within Last Twelve Months: Cigarettes Second Hand Smoke Exposure: Yes Days Per Week of Alcohol Use: 0 Recreational Drug Use History: No - HOME MEDS Home Medications: Home Meds Spironolactone [Aldactone] 100 mg PO BID 01/12/17 [History] atorvaSTATin [Lipitor] 40 mg PO BEDTIME 03/06/17 [History] Albuterol Sulfate [Proair Hfa] 2 puff INH ASDIRECTED PRN 04/10/17 [History] Empagliflozin [Jardiance] 10 mg PO ASDIRECTED 04/10/17 [History] Exenatide Microspheres [Bydureon Pen] 2 mg SUBCUT WEEKLY 04/10/17 [History] Naproxen 1 tab PO ASDIRECTED PRN 04/10/17 [History] Progesterone,Micronized [Progesterone] 100 mg PO DAILY 04/10/17 [History] Umeclidinium Brm/Vilanterol Tr [Anoro Ellipta 62.5-25 Mcg INH] 1 puff INH DAILY 04/10/17 [History] Zolpidem Tartrate 10 mg PO BEDTIME 04/10/17 [History] metFORMIN HCl [Metformin HCl] 500 mg PO BID 04/10/17 [History] Depo-Estradiol 5 mg IM WEEKLY 04/11/17 [History] - CURRENT (IN HOUSE) MEDS Current Meds: Current Medications Lactated Ringer's (Ringers, Lactated) 1,000 mls @ 125 mls/hr IV ASDIRECTED DEON Discontinued Medications Bupivacaine HCl (Sensorcaine-Mpf 0.5%) Confirm Administered Dose 10 ml .ROUTE .STK-MED ONE Stop: 04/13/17 07:26 Lidocaine HCl (Xylocaine-Mpf 1%) Confirm Administered Dose 5 ml .ROUTE .STK-MED ONE Stop: 04/13/17 07:27
[2017-04-13] MEDS ORDERED: Propofol 200 MG/20 ML SDV ONE ×2 (08:40→08:41)
[2017-04-13] MEDS ORDERED: Lidocaine 2% 5 ML SDV ONE (08:41)
[2017-04-13] MEDS ORDERED: fentaNYL 100 MCG/2 ML SDV ONE (08:42)
[2017-04-13] MEDS ORDERED: Midazolam 1 MG/ML 2 ML SDV ONE (08:42)
[2017-04-13] MEDS ORDERED: ePHEDrine 50 MG/ML SDV ONE (09:05)
[2017-04-13] MEDS ORDERED: Ondansetron 4 MG/2 ML SDV ONE (09:10)
[2017-04-13] MEDS ORDERED: fentaNYL 100 MCG/2 ML SDV IVPUSH PRN (09:20)
[2017-04-13] MEDS ORDERED: Acetaminophen/HYDROcodone 325-5 MG Tab PO PRN (09:47)
--- NOTE | 2017-04-13 09:49 | PCM.OPNOTE ---
- General Post-Op/Procedure Note Date of Surgery/Procedure: 04/13/17 Operative Procedure(s): Excision 3.5 cm right postauricular mass. Pre Op Diagnosis: Right postauricular mass. Post-Op Diagnosis: Inclusion cyst. Anesthesia Technique: General LMA (ASA III) Primary Surgeon: Chicho Villanueva Fluid Replacement, Intraop: 1,000 EBL in mLs: 5 Condition: Good Free Text/Narrative:: Dictation [id number] CPT CODE 81487
[2017-04-13] MEDS ORDERED: Lactated Ringers 1,000 ML IV SCH (10:00)
--- NOTE | 2017-04-13 10:51 | OR ---
SURGEON: Chicho Villanueva M.D. DATE OF PROCEDURE: 04/13/2017 OPERATION PERFORMED: Excision of 3 cm right postauricular mass. ANESTHESIA: General LMA. ASA CLASSIFICATION: III. PREOPERATIVE DIAGNOSIS: Symptomatic right postauricular mass. POSTOPERATIVE DIAGNOSIS: Symptomatic right postauricular mass. ESTIMATED BLOOD LOSS: 5 mL. FLUID REPLACEMENT: 1000 mL of crystalloid. DESCRIPTION OF PROCEDURE: The patient was taken to the operating room and placed on the operating table in the supine position. Time-out was called for appropriate identification of the patient and procedure. The surgical site had been marked prior to the patient entering the operating room. Once satisfactory attainment of general anesthesia with an LMA was obtained, the patient was rolled up on his left side approximately 15 degrees and supported on the beanbag. The right arm was supported with a soft wrist restraint. The surgical site was prepped with Betadine solution and sterile drapes were applied. Field block was accomplished with 10 mL of 0.5% Marcaine. Skin incision was made directly over the mass. The skin was very thin. The mass was entered. Clinically, this appears to be a sebaceous cyst. Hemostasis was obtained with the use of electrocautery. Using sharp scissor dissection, the entire cyst wall was removed. The wound was then inspected for hemostasis and small bleeding sites were electrocoagulated. The incision was irrigated with sterile saline solution. Wound was again inspected. No significant bleeding was noted. The incision was then closed in a single layer with running locked 4-0 nylon. Antibiotic ointment was placed over this and dressing. The patient tolerated the procedure well. Sponge, needle, and instrument counts were all correct. Once returning to the supine position, the patient was allowed to emerge from anesthesia and extubated. He was then taken to recovery room in stable condition. RENATO / AIDAN /[id number]
[2017-04-13 14:26] VITALS: BP 116/78
== END 2017-04-13 11:15 | disposition home or self-care (01) ==
LOC: MW.SDS 07:40
PROVIDERS: ATTEND Surgery
DX: L72.0 Epidermal cyst (principal); F41.9 Anxiety disorder, unspecified; J45.909 Unspecified asthma, uncomplicated; E11.9 Type 2 diabetes mellitus without complications; E78.5 Hyperlipidemia, unspecified; I10 Essential (primary) hypertension; Z79.890 Hormone replacement therapy; Z88.1 Allergy status to other antibiotic agents; Z88.8 Allergy status to other drugs, medicaments and biological substances; Z79.899 Other long term (current) drug therapy; F17.210 Nicotine dependence, cigarettes, uncomplicated
CPT/HCPCS: 11443; J2250; J2405; J3010; 00300; 82962; 88304; J2704

== ENCOUNTER 2017-05-21 14:37 | Emergency (ER) | payer SELFPAY ==
[2017-05-21 15:14] VITALS: BP 121/73
[2017-05-21] MEDS ORDERED: Benzocaine 20% Topical Spray UD MUCMEM ONE (16:21)
[2017-05-21] MEDS ORDERED: Lidocaine 2% Viscous Solution 15 ML Cup PO ONE (16:21)
--- NOTE | 2017-05-21 16:22 | EDM.PDOC ---
ED HPI GENERAL MEDICAL PROBLEM - General Chief Complaint: ENT Problem Stated Complaint: L SIDE OF FACE SWOLLEN Time Seen by Provider: 05/21/17 16:10 Source of Information: Reports: Patient History Limitations: Reports: No Limitations - History of Present Illness INITIAL COMMENTS - FREE TEXT/NARRATIVE: HISTORY AND PHYSICAL: History of present illness: [He comes to the emergency room complaining of left jaw swelling. He has a long history of dental infections and broken teeth. Over the past couple of days he has developed pain and swelling to his left lower jaw as well as increased tooth pain. No fever or chills. Difficulty eating and drinking due to the pain in his mouth. He is unable to afford the cost of a dentist right now as well as the cost of any expensive medications as he does not have any money.] Review of systems: As per history of present illness and below otherwise all systems reviewed and negative. Past medical history: As per history of present illness and as reviewed below otherwise noncontributory. Surgical history: As per history of present illness and as reviewed below otherwise noncontributory. Social history: No reported history of drug or alcohol abuse. Family history: As per history of present illness and as reviewed below otherwise noncontributory. Physical exam: HEENT: Atraumatic, normocephalic. Teeth numbers 5 and 6 are broken and in significant decay. Surrounding gum tissue is erythematous and swollen. All of his teeth are in very poor repair and thick with decay. Oral mucous membranes are otherwise moist and pink. Throat is clear. Neck is supple. He has an enlarged lymph node over the anterior cervical node. Swelling is appreciated over his left lower jaw. Exquisitely tender with palpation. No erythema to his cheek. Face is otherwise nontender with palpation. Lungs: Clear to auscultation, breath sounds equal bilaterally. Heart: S1S2, regular.. Extremities: Atraumatic, negative for cords or calf pain. Neurovascular unremarkable. Neuro: Awake, alert, oriented.Motor and sensory unremarkable throughout. Exam nonfocal. Therapeutics: [Dental balls] Impression: [Dental abscess] Plan: [Patient is given dental balls Dental balls, and prescribed Augmentin 875 mg # 20 sig one by mouth twice a day 0 refills. He isn't sure he can afford any medication but will ask his friends if he can borrow some money. Tylenol or ibuprofen as needed for discomfort. 5 dentist to help him with his dental needs. He verbalized understanding.] Definitive disposition and diagnosis as appropriate pending reevaluation and review of above. Left Oral/Mouth Pain Score (Numeric/FACES): 5 - Related Data Allergies Allergy/AdvReac Type Severity Reaction Status Date / Time ceftriaxone sodium Allergy Cannot Verified 05/21/17 15:18 [From Rocephin] Remember levofloxacin [From Levaquin] Allergy Hives Verified 05/21/17 15:18 tetanus and diphtheria Allergy Swelling Verified 05/21/17 15:18 toxoids [tetanus & diphtheria toxoids] Home Meds: Home Meds Spironolactone [Aldactone] 100 mg PO BID 01/12/17 [History] atorvaSTATin [Lipitor] 40 mg PO BEDTIME 03/06/17 [History] Albuterol Sulfate [Proair Hfa] 2 puff INH ASDIRECTED PRN 04/10/17 [History] Empagliflozin [Jardiance] 10 mg PO ASDIRECTED 04/10/17 [History] Exenatide Microspheres [Bydureon Pen] 2 mg SUBCUT WEEKLY 04/10/17 [History] Naproxen 1 tab PO ASDIRECTED PRN 04/10/17 [History] Progesterone,Micronized [Progesterone] 100 mg PO DAILY 04/10/17 [History] Umeclidinium Brm/Vilanterol Tr [Anoro Ellipta 62.5-25 Mcg INH] 1 puff INH DAILY 04/10/17 [History] Zolpidem Tartrate 10 mg PO BEDTIME 04/10/17 [History] metFORMIN HCl [Metformin HCl] 500 mg PO BID 04/10/17 [History] Depo-Estradiol 5 mg IM WEEKLY 04/11/17 [History] Past Medical History - Past Health History Medical/Surgical History: Denies Medical/Surgical History HEENT History: Reports: Impaired Vision Cardiovascular History: Reports: High Cholesterol, Hypertension Respiratory History: Reports: Asthma, COPD Other Respiratory History: has daily inhaler Gastrointestinal History: Reports: Other (See Below) Genitourinary History: Reports: UTI, Recurrent Other Genitourinary History: in the past- not the last 2 years Musculoskeletal History: Reports: Arthritis, Fracture, Other (See Below) Other Musculoskeletal History: hx of fx left elbow, has frequent legs cramps Neurological History: Reports: Concussion, Seizure Other Neuro History: hx of seizures 10 years ago- stopped- none since- no medication Psychiatric History: Reports: Anxiety, Depression, Suicide Attempt, Other (See Below) Other Psychiatric History: states is transgender Endocrine/Metabolic History: Reports: Diabetes, Type II, Obesity/BMI 30+ Hematologic History: Reports: None Immunologic History: Reports: None Oncologic (Cancer) History: Reports: None Dermatologic History: Reports: None - Infectious Disease History Infectious Disease History: Reports: Chicken Pox, Measles, Mumps - Past Surgical History Head Surgeries/Procedures: Reports: None HEENT Surgical History: Reports: Myringotomy w Tube(s) Other HEENT Surgeries/Procedures: facial cyst removed, ear surgery GI Surgical History: Reports: Other (See Below) Other GI Surgeries/Procedures: anal surgery for recurrent fistula Other Male Surgeries/Procedures: warts removed Social & Family History - Family History Family Medical History: Noncontributory - Tobacco Use Smoking Status *Q: Current Some Day Smoker Years of Tobacco use: 24 Packs/Tins Daily: 1 Second Hand Smoke Exposure: Yes - Caffeine Use Caffeine Use: Reports: None Caffeine Use Comment: 52 ounces/day - Alcohol Use Days Per Week of Alcohol Use: 0 - Recreational Drug Use Recreational Drug Use: No Drug Use in Last 12 Months: No - Living Situation & Occupation Living situation: Reports: Occupation: Employed ED ROS ENT - Review of Systems Review Of Systems: ROS reveals no pertinent complaints other than HPI. ED EXAM, ENT - Physical Exam Exam: See Below Course - Vital Signs Last Recorded V/S: Last Vital Signs Temp 97.7 F 05/21/17 15:13 Pulse 80 05/21/17 15:13 Resp 20 05/21/17 15:13 BP 121/73 05/21/17 15:13 Pulse Ox 98 05/21/17 15:13 - Orders/Labs/Meds Meds: Medications Discontinued Medications Generic Name Dose Route Start Last Admin Trade Name Jayesh PRN Reason Stop Dose Admin Benzocaine 2 each 05/21/17 16:21 05/21/17 16:21 Hurricaine One 20% MUCMEM 05/21/17 16:22 2 each ONETIME ONE Administration Lidocaine HCl 15 ml 05/21/17 16:21 05/21/17 16:21 Xylocaine 2% Viscous PO 05/21/17 16:22 15 ml ONETIME ONE Administration Departure - Departure Time of Disposition: 16:20 Disposition: Home, Self-Care 01 Condition: Good Clinical Impression: Pain, dental - Discharge Information Instructions: Dental Abscess Referrals: Tabitha Rogers [Outside] Forms: ED Department Discharge Additional Instructions: The following information is given to patients seen in the emergency department who are being discharged to home. This information is to outline your options for follow-up care. We provide all patients seen in our emergency department with a follow-up referral. The need for follow-up, as well as the timing and circumstances, are variable depending upon the specifics of your emergency department visit. If you don't have a primary care physician on staff, we will provide you with a referral. We always advise you to contact your personal physician following an emergency department visit to inform them of the circumstance of the visit and for follow-up with them and/or the need for any referrals to a consulting specialist. The emergency department will also refer you to a specialist when appropriate. This referral assures that you have the opportunity for follow-up care with a specialist. All of these measure are taken in an effort to provide you with optimal care, which includes your follow-up. Under all circumstances we always encourage you to contact your private physician who remains a resource for coordinating your care. When calling for follow-up care, please make the office aware that this follow-up is from your recent emergency room visit. If for any reason you are refused follow-up, please contact the [facility] emergency department at and asked to speak to the emergency department charge nurse. [facility] [address] [place] [id number] Follow-up with your local provider or establish care at the clinic listed above. Follow-up there in 48-72 hours. Take antibiotics as prescribed. Alternate Tylenol 2 tablets with ibuprofen 200 mg 3-4 tablets every 4-6 hours as needed for pain. Use dental balls. Return to ER as needed as discussed.
== END 2017-05-21 16:35 | disposition home or self-care (01) ==
LOC: MW.ED 14:37
DX: K04.7 Periapical abscess without sinus (principal); K03.81 Cracked tooth; K02.9 Dental caries, unspecified; I10 Essential (primary) hypertension; E78.00 Pure hypercholesterolemia, unspecified; J44.9 Chronic obstructive pulmonary disease, unspecified; F32.9 Major depressive disorder, single episode, unspecified; E11.9 Type 2 diabetes mellitus without complications; F17.210 Nicotine dependence, cigarettes, uncomplicated; Z79.84 Long term (current) use of oral hypoglycemic drugs; Z79.899 Other long term (current) drug therapy; Z88.1 Allergy status to other antibiotic agents; Z88.7 Allergy status to serum and vaccine
CPT/HCPCS: 99282; A9270

== ENCOUNTER 2017-07-03 12:42 | Emergency (ER) | payer OTHER ==
--- NOTE | 2017-07-03 13:03 | EDM.PDOC ---
ED HPI GENERAL MEDICAL PROBLEM - General Chief Complaint: ENT Problem Stated Complaint: ABSESS TOOTH Time Seen by Provider: 07/03/17 12:47 Source of Information: Reports: Patient History Limitations: Reports: No Limitations - History of Present Illness INITIAL COMMENTS - FREE TEXT/NARRATIVE: HISTORY AND PHYSICAL: History of present illness: Patient is a 36-year-old female who presents to the emergency room with complaints of left lower dental pain 3-4 days. She has a long-standing history of dental infections and has been taking antibiotics for these as she states her insurance doesn't cover dental care. She did state that she found a dentist locally who will extract the problematic to. "But first I need to have the infection taken care of before he'll remove them". She denies any fever, chills, chest pain or shortness of breath. She has no abdominal pain, nausea, vomiting or diarrhea. Has no systemic complaints at this time. Review of systems: As per history of present illness and below otherwise all systems reviewed and negative. Past medical history: As per history of present illness and as reviewed below otherwise noncontributory. Surgical history: As per history of present illness and as reviewed below otherwise noncontributory. Social history: No reported history of drug or alcohol abuse. Family history: As per history of present illness and as reviewed below otherwise noncontributory. Physical exam: General: Well-developed and well nourished 36-year-old transgendered female. Alert and oriented. Nontoxic appearing and in no acute distress. HEENT: Atraumatic, normocephalic, pupils equal and reactive bilaterally, negative for conjunctival pallor or scleral icterus, mucous membranes moist, multiple dental caries noted, dental decay noted to the left posterior molars with mild erythema along the gumlin. No mastoid tenderness. Throat clear, neck supple, nontender, trachea midline. No drooling or trismus noted. No meningeal signs Lungs: Clear to auscultation, breath sounds equal bilaterally, chest nontender. Heart: S1S2, regular rate and rhythm without overt murmur Abdomen: Soft, nondistended, nontender. Negative for masses or hepatosplenomegaly. Negative for costovertebral tenderness. Pelvis: Stable nontender. Genitourinary: Deferred. Rectal: Deferred. Skin: Intact, warm, dry. No lesions or rashes noted. Extremities: Atraumatic, negative for cords or calf pain. Neurovascular unremarkable. Neuro: Awake, alert, oriented. Cranial nerves II through XII unremarkable. Cerebellum unremarkable. Motor and sensory unremarkable throughout. Exam nonfocal. Notes: Patient states that she does have an appointment with a dentist for extraction. Has some left over "tooth balls" from previous visits for dental pain/abscess. We'll prescribe Augmentin 875 one tab twice a day 10 days. Tramadol 1 tab daily for 6 hours as needed, dispense 10, no refill. Education was given on the need for follow-up. She voices understanding and is agreeable to plan of care. Denies any further questions at this time. Diagnostics: [] Therapeutics: [] Impression: Dental abscess Dental Decay Plan: 1. Please take the antibiotic as directed. Follow-up with the dentist for definitive care (dental extraction). 2. Tramadol has been prescribed for severe pain. He may take 1 tablet every 4-6 hours as needed. Please reserve this for nighttime use as it will cause drowsiness. Do not drive or leave the house while under this medication. He may use Tylenol and/or ibuprofen as needed for daytime use. 3. Turn to the ED as needed and as discussed. Definitive disposition and diagnosis as appropriate pending reevaluation and review of above. Duration: Day(s): Tooth/Teeth Pain Score (Numeric/FACES): 5 - Related Data Allergies Allergy/AdvReac Type Severity Reaction Status Date / Time ceftriaxone sodium Allergy Cannot Verified 07/03/17 12:58 [From Rocephin] Remember levofloxacin [From Levaquin] Allergy Hives Verified 07/03/17 12:58 tetanus and diphtheria Allergy Swelling Verified 07/03/17 12:58 toxoids [tetanus & diphtheria toxoids] Home Meds: Home Meds Spironolactone [Aldactone] 100 mg PO BID 01/12/17 [History] atorvaSTATin [Lipitor] 40 mg PO BEDTIME 03/06/17 [History] Albuterol Sulfate [Proair Hfa] 2 puff INH ASDIRECTED PRN 04/10/17 [History] Empagliflozin [Jardiance] 10 mg PO ASDIRECTED 04/10/17 [History] Exenatide Microspheres [Bydureon Pen] 2 mg SUBCUT WEEKLY 04/10/17 [History] Naproxen 1 tab PO ASDIRECTED PRN 04/10/17 [History] Progesterone,Micronized [Progesterone] 100 mg PO DAILY 04/10/17 [History] Umeclidinium Brm/Vilanterol Tr [Anoro Ellipta 62.5-25 Mcg INH] 1 puff INH DAILY 04/10/17 [History] Zolpidem Tartrate 10 mg PO BEDTIME 04/10/17 [History] metFORMIN HCl [Metformin HCl] 500 mg PO BID 04/10/17 [History] Depo-Estradiol 5 mg IM WEEKLY 04/11/17 [History] Past Medical History - Past Health History Medical/Surgical History: Denies Medical/Surgical History HEENT History: Reports: Impaired Vision Cardiovascular History: Reports: High Cholesterol, Hypertension Respiratory History: Reports: Asthma, COPD Other Respiratory History: has daily inhaler Gastrointestinal History: Reports: Other (See Below) Genitourinary History: Reports: UTI, Recurrent Other Genitourinary History: in the past- not the last 2 years Musculoskeletal History: Reports: Arthritis, Fracture, Other (See Below) Other Musculoskeletal History: hx of fx left elbow, has frequent legs cramps Neurological History: Reports: Concussion, Seizure Other Neuro History: hx of seizures 10 years ago- stopped- none since- no medication Psychiatric History: Reports: Anxiety, Depression, Suicide Attempt, Other (See Below) Other Psychiatric History: states is transgender Endocrine/Metabolic History: Reports: Diabetes, Type II, Obesity/BMI 30+ Hematologic History: Reports: None Immunologic History: Reports: None Oncologic (Cancer) History: Reports: None Dermatologic History: Reports: None - Infectious Disease History Infectious Disease History: Reports: Chicken Pox - Past Surgical History Head Surgeries/Procedures: Reports: None HEENT Surgical History: Reports: Myringotomy w Tube(s) Other HEENT Surgeries/Procedures: facial cyst removed, ear surgery GI Surgical History: Reports: Other (See Below) Other GI Surgeries/Procedures: anal surgery for recurrent fistula Social & Family History - Family History Family Medical History: Noncontributory - Tobacco Use Smoking Status *Q: Current Every Day Smoker Years of Tobacco use: 24 Packs/Tins Daily: 1 Second Hand Smoke Exposure: Yes - Caffeine Use Caffeine Use: Reports: None Caffeine Use Comment: 52 ounces/day - Alcohol Use Days Per Week of Alcohol Use: 0 - Recreational Drug Use Recreational Drug Use: No Drug Use in Last 12 Months: No - Living Situation & Occupation Living situation: Reports: Occupation: Employed ED ROS ENT - Review of Systems Review Of Systems: ROS reveals no pertinent complaints other than HPI. ED EXAM, ENT - Physical Exam Exam: See Below (See dictation) Course - Vital Signs Last Recorded V/S: Last Vital Signs Temp Pulse 117 H 07/03/17 12:55 Resp 18 07/03/17 12:55 BP 143/86 H 07/03/17 12:55 Pulse Ox 94 L 07/03/17 12:55 Departure - Departure Time of Disposition: 13:18 Disposition: Home, Self-Care 01 Clinical Impression: Dental abscess, Dental decay - Discharge Information Instructions: Dental Abscess, [id number] Referrals: PCP,None [Primary Care Provider] - Forms: ED Department Discharge Additional Instructions: The following information is given to patients seen in the emergency department who are being discharged to home. This information is to outline your options for follow-up care. We provide all patients seen in our emergency department with a follow-up referral. The need for follow-up, as well as the timing and circumstances, are variable depending upon the specifics of your emergency department visit. If you don't have a primary care physician on staff, we will provide you with a referral. We always advise you to contact your personal physician following an emergency department visit to inform them of the circumstance of the visit and for follow-up with them and/or the need for any referrals to a consulting specialist. The emergency department will also refer you to a specialist when appropriate. This referral assures that you have the opportunity for follow-up care with a specialist. All of these measure are taken in an effort to provide you with optimal care, which includes your follow-up. Under all circumstances we always encourage you to contact your private physician who remains a resource for coordinating your care. When calling for follow-up care, please make the office aware that this follow-up is from your recent emergency room visit. If for any reason you are refused follow-up, please contact the [facility] Emergency Department at and asked to speak to the emergency department charge nurse. [facility] [address] [place] [id number] 1. Please take the antibiotic as directed. Follow-up with the dentist for definitive care (dental extraction). 2. Tramadol has been prescribed for severe pain. He may take 1 tablet every 4-6 hours as needed. Please reserve this for nighttime use as it will cause drowsiness. Do not drive or leave the house while under this medication. He may use Tylenol and/or ibuprofen as needed for daytime use. 3. Turn to the ED as needed and as discussed.
[2017-07-03 13:42] VITALS: BP 142/80
== END 2017-07-03 13:30 | disposition home or self-care (01) ==
LOC: EDSEX → MW.ED 12:42
DX: K04.7 Periapical abscess without sinus (principal); K02.9 Dental caries, unspecified; E78.00 Pure hypercholesterolemia, unspecified; I10 Essential (primary) hypertension; E11.9 Type 2 diabetes mellitus without complications; F17.210 Nicotine dependence, cigarettes, uncomplicated; Z88.8 Allergy status to other drugs, medicaments and biological substances; Z88.1 Allergy status to other antibiotic agents; Z88.7 Allergy status to serum and vaccine; Z79.899 Other long term (current) drug therapy; Z79.84 Long term (current) use of oral hypoglycemic drugs
CPT/HCPCS: 99282; 99283

== ENCOUNTER 2017-07-16 11:02 | Emergency (ER) | payer OTHER ==
[2017-07-16] MEDS ORDERED: Ketorolac 60 MG/2 ML SDV IM ONE (11:18)
[2017-07-16 11:22] VITALS: BP 132/86
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
--- NOTE | 2017-07-16 12:40 | CR ---
EXAMINATION: Thoracic spine HISTORY: Injury COMPARISON: None TECHNIQUE: AP and lateral views FINDINGS: The thoracic spinal alignment is normal. The vertebral body heights and disc spaces appear well-maintained. Bone mineralization is normal. Minimal marginal osteophytes are noted. IMPRESSION: 1. Minimal degenerative changes without acute findings.
== END 2017-07-16 12:46 | disposition home or self-care (01) ==
LOC: MW.ED 11:02
DX: S20.229A Contusion of unspecified back wall of thorax, initial encounter (principal); I10 Essential (primary) hypertension; E78.00 Pure hypercholesterolemia, unspecified; E66.9 Obesity, unspecified; E11.9 Type 2 diabetes mellitus without complications; F17.210 Nicotine dependence, cigarettes, uncomplicated; Z79.899 Other long term (current) drug therapy; W22.8XXA Striking against or struck by other objects, initial encounter
CPT/HCPCS: 72072; 96372; 99283; J1885

== ENCOUNTER 2017-08-06 17:13 | Emergency (ER) | payer MEDICAID, OTHER ==
--- NOTE | 2017-08-06 17:43 | EDM.PDOC ---
ED HPI GENERAL MEDICAL PROBLEM - General Chief Complaint: Skin Complaint Stated Complaint: INFECTION Time Seen by Provider: 08/06/17 17:42 Source of Information: Reports: Patient History Limitations: Reports: No Limitations - History of Present Illness INITIAL COMMENTS - FREE TEXT/NARRATIVE: HISTORY AND PHYSICAL: []This is a 37-year-old transgender male who is complaining of rectal pain and fissure History of Present Illness: []Patient has history of fissurectomy in 2009 Dr. Nash Review of Systems: As per history of present illness and below otherwise all systems reviewed and negative. Past medical history: As per history of present illness and as reviewed below otherwise noncontributory. Surgical history: As per history of present illness and as reviewed below otherwise noncontributory. Social history: No reported history of drug or alcohol abuse. Family history: As per history of present illness and as reviewed below otherwise noncontributory. Physical exam: HEENT: Atraumatic, normocehpalic, pupils reactive, negative for conjunctival pallor or scleral icterus, mucous membranes moist, throat clear, neck supple, nontender, trachea midline. Lungs: Clear to auscultation, breath sounds equal bilaterally, chest non tender. Heart: S1S2, regular, negative for clicks, rubs, or JVD. Abdomen: Soft, nondistended, nontender. Negative for masses or hepatossplenmegaly. Negative for costovertebral tenderness. Pelvis: Stable nontender. Genitourinary: Deferred. Rectal: Small fissure opening very mild erythema to area of rectum Extremities: Atraumatic, negative for cords or calf pain. Neurovascular unremarkable. Neuro: Awake, alert, oriented. Cranial nerves II through XII unremarkable. Cerebellum unremarkable. Motor and sensory unremarkable throughout. Exam nonfocal. Discussed findings with the patient she she needs to utilize sitz baths Oral antibiotics Recommend follow-up with surgeon of her choice Diagnostics: [] Therapeutics: [] Impression: []Rectal fissure Plan: []Discharged home Oral antibiotics Follow-up with your primary care for reevaluation Sitz baths Return to emergency room as directed and discussed Definitive disposition and diagnosis as appropriate pending reevaluation and review of above. Onset: Gradual Duration: Day(s):, Getting Worse Location: Reports: Other (rectum) Severity: Mild Improves with: Reports: None Worsens with: Reports: None Associated Symptoms: Reports: No Other Symptoms - Related Data Allergies Allergy/AdvReac Type Severity Reaction Status Date / Time ceftriaxone sodium Allergy Cannot Verified 07/16/17 11:20 [From Rocephin] Remember levofloxacin [From Levaquin] Allergy Hives Verified 07/16/17 11:20 tetanus and diphtheria Allergy Swelling Verified 07/16/17 11:20 toxoids [tetanus & diphtheria toxoids] Home Meds: Home Meds Spironolactone [Aldactone] 100 mg PO BID 01/12/17 [History] atorvaSTATin [Lipitor] 40 mg PO BEDTIME 03/06/17 [History] Albuterol Sulfate [Proair Hfa] 2 puff INH ASDIRECTED PRN 04/10/17 [History] Empagliflozin [Jardiance] 10 mg PO ASDIRECTED 04/10/17 [History] Exenatide Microspheres [Bydureon Pen] 2 mg SUBCUT WEEKLY 04/10/17 [History] Naproxen 1 tab PO ASDIRECTED PRN 04/10/17 [History] Progesterone,Micronized [Progesterone] 100 mg PO DAILY 04/10/17 [History] Umeclidinium Brm/Vilanterol Tr [Anoro Ellipta 62.5-25 Mcg INH] 1 puff INH DAILY 04/10/17 [History] Zolpidem Tartrate 10 mg PO BEDTIME 04/10/17 [History] metFORMIN HCl [Metformin HCl] 500 mg PO BID 04/10/17 [History] Depo-Estradiol 5 mg IM WEEKLY 04/11/17 [History] Past Medical History - Past Health History Medical/Surgical History: Denies Medical/Surgical History HEENT History: Reports: Impaired Vision Cardiovascular History: Reports: High Cholesterol, Hypertension Respiratory History: Reports: Asthma, COPD Other Respiratory History: has daily inhaler Gastrointestinal History: Reports: Other (See Below) Genitourinary History: Reports: UTI, Recurrent Other Genitourinary History: in the past- not the last 2 years Musculoskeletal History: Reports: Arthritis, Fracture, Other (See Below) Other Musculoskeletal History: hx of fx left elbow, has frequent legs cramps Neurological History: Reports: Concussion, Seizure Other Neuro History: hx of seizures 10 years ago- stopped- none since- no medication Psychiatric History: Reports: Anxiety, Depression, Suicide Attempt, Other (See Below) Other Psychiatric History: states is transgender Endocrine/Metabolic History: Reports: Diabetes, Type II, Obesity/BMI 30+ Hematologic History: Reports: None Immunologic History: Reports: None Oncologic (Cancer) History: Reports: None Dermatologic History: Reports: None - Infectious Disease History Infectious Disease History: Reports: Chicken Pox - Past Surgical History Head Surgeries/Procedures: Reports: None HEENT Surgical History: Reports: Myringotomy w Tube(s) Other HEENT Surgeries/Procedures: facial cyst removed, ear surgery GI Surgical History: Reports: Other (See Below) Other GI Surgeries/Procedures: anal surgery for recurrent fistula Social & Family History - Family History Family Medical History: Noncontributory - Tobacco Use Smoking Status *Q: Current Every Day Smoker Years of Tobacco use: 24 Packs/Tins Daily: 1 Second Hand Smoke Exposure: Yes - Caffeine Use Caffeine Use: Reports: None Caffeine Use Comment: 52 ounces/day - Alcohol Use Days Per Week of Alcohol Use: 0 - Recreational Drug Use Recreational Drug Use: No Drug Use in Last 12 Months: No - Living Situation & Occupation Living situation: Reports: Occupation: Employed ED ROS GENERAL - Review of Systems Review Of Systems: ROS reveals no pertinent complaints other than HPI. ED EXAM, SKIN/RASH Exam: See Below (see dictation) Departure - Departure Time of Disposition: 18:00 Disposition: Home, Self-Care 01 Condition: Good Clinical Impression: Rectal fissure - Discharge Information Instructions: Anal Fissure, Adult, [id number] Referrals: PCP,None [Primary Care Provider] - Forms: ED Department Discharge Additional Instructions: The following information is given to patients seen in the emergency department who are being discharged to home. This information is to outline your options for follow-up care. We provide all patients seen in our emergency department with a follow-up referral. The need for follow-up, as well as the timing and circumstances, are variable depending upon the specifics of your emergency department visit. If you don't have a primary care physician on staff, we will provide you with a referral. We always advise you to contact your personal physician following an emergency department visit to inform them of the circumstance of the visit and for follow-up with them and/or the need for any referrals to a consulting specialist. The emergency department will also refer you to a specialist when appropriate. This referral assures that you have the opportunity for followup care with a specialist. All of these measure are taken in an effort to provide you with optimal care, which includes your followup. Under all circumstances we always encourage you to contact your private physician who remains a resource for coordinating your care. When calling for followup care, please make the office aware that this follow-up is from your recent emergency room visit. If for any reason you are refused follow-up, please contact the [facility] emergency department at and asked to speak to the emergency department charge nurse. Prescription has been written for Augmentin 875 one twice a day 10 days Sitz baths to relieve discomfort Stool softener daily Follow-up with your primary care provider If you do not have a primary care provider call one of the following clinics to establish care [facility] [place] [phone] [place] [address] Return to emergency room as discussed
[2017-08-06 18:44] VITALS: BP 125/69
== END 2017-08-06 18:40 | disposition home or self-care (01) ==
LOC: MW.ED 17:13
DX: K60.2 Anal fissure, unspecified (principal); E78.00 Pure hypercholesterolemia, unspecified; I10 Essential (primary) hypertension; J44.9 Chronic obstructive pulmonary disease, unspecified; F41.9 Anxiety disorder, unspecified; F32.9 Major depressive disorder, single episode, unspecified; E11.9 Type 2 diabetes mellitus without complications; F17.210 Nicotine dependence, cigarettes, uncomplicated; F64.1 Dual role transvestism; Z88.1 Allergy status to other antibiotic agents; Z88.8 Allergy status to other drugs, medicaments and biological substances; Z88.7 Allergy status to serum and vaccine; Z87.440 Personal history of urinary (tract) infections; Z79.899 Other long term (current) drug therapy
CPT/HCPCS: 99283

== ENCOUNTER 2017-10-08 01:41 | Emergency (ER) | payer MEDICAID ==
--- NOTE | 2017-10-08 01:51 | EDM.PDOC ---
ED HPI GENERAL MEDICAL PROBLEM - General Chief Complaint: General Stated Complaint: TOOTH PAIN Time Seen by Provider: 10/08/17 01:50 Source of Information: Reports: Patient History Limitations: Reports: No Limitations - History of Present Illness INITIAL COMMENTS - FREE TEXT/NARRATIVE: HISTORY AND PHYSICAL: History of present illness: 37-year-old transgender male presenting to the emergency department with chief complaint of right upper tooth pain 2 days. Patient states that she began having right upper tooth pain yesterday morning. It has progressively gotten worse to the point where she cannot sleep tonight. She has had problems with dental abscesses in the past but secondary to insurance hasn't been unable to have extractions performed by [facility]. States that her insurance does not cover dental visits. She denies any associated fevers but believes there has been a little gum swelling. Has had no other constitutional symptoms and overall has been feeling well otherwise. Currently denies any chest pain, palpitations, shortness of breath, syncopal episodes, focal neurologic deficits. On examination patient has poor dentition throughout. Area of concern is after # 4 and 5 that shows significant deterioration as well as mild erythema and swelling to the gum. Review of systems: As per history of present illness and below otherwise all systems reviewed and negative. Past medical history: As per history of present illness and as reviewed below otherwise noncontributory. Surgical history: As per history of present illness and as reviewed below otherwise noncontributory. Social history: No reported history of drug or alcohol abuse. Family history: As per history of present illness and as reviewed below otherwise noncontributory. Physical exam: HEENT: Atraumatic, normocephalic, pupils reactive, negative for conjunctival pallor or scleral icterus, mucous membranes moist, throat clear, neck supple, nontender, trachea midline. Lungs: Clear to auscultation, breath sounds equal bilaterally, chest nontender. Heart: S1S2, regular, negative for clicks, rubs, or JVD. Abdomen: Soft, nondistended, nontender. Negative for masses or hepatosplenomegaly. Negative for costovertebral tenderness. Pelvis: Stable nontender. Genitourinary: Deferred. Rectal: Deferred. Extremities: Atraumatic, negative for cords or calf pain. Neurovascular unremarkable. Neuro: Awake, alert, oriented. Cranial nerves II through XII unremarkable. Cerebellum unremarkable. Motor and sensory unremarkable throughout. Exam nonfocal. Diagnostics: [] Therapeutics: Dental cement, dental balls, Augmentin [id number] days Impression: Dental abscess Dental caries Plan: As above there is significant poor dentition throughout. I did use dental cement to cover some of the exposed caries which seemed to help with the patient 's pain. Also give patient dental balls and a prescription for Augmentin 875 mg twice a day 10 days. Instructed to follow-up with dentist as soon as she can afford it. And return to emergency department if she has any new or worsening symptoms.. dental pain Pain Score (Numeric/FACES): 9 - Related Data Allergies Allergy/AdvReac Type Severity Reaction Status Date / Time ceftriaxone sodium Allergy Cannot Verified 10/08/17 01:49 [From Rocephin] Remember levofloxacin [From Levaquin] Allergy Hives Verified 10/08/17 01:49 tetanus and diphtheria Allergy Swelling Verified 10/08/17 01:49 toxoids [tetanus & diphtheria toxoids] Home Meds: Home Meds Spironolactone [Aldactone] 100 mg PO BID 01/12/17 [History] atorvaSTATin [Lipitor] 40 mg PO BEDTIME 03/06/17 [History] Albuterol Sulfate [Proair Hfa] 2 puff INH ASDIRECTED PRN 04/10/17 [History] Empagliflozin [Jardiance] 10 mg PO ASDIRECTED 04/10/17 [History] Exenatide Microspheres [Bydureon Pen] 2 mg SUBCUT WEEKLY 04/10/17 [History] Naproxen 1 tab PO ASDIRECTED PRN 04/10/17 [History] Progesterone,Micronized [Progesterone] 100 mg PO DAILY 04/10/17 [History] Zolpidem Tartrate 10 mg PO BEDTIME 04/10/17 [History] metFORMIN HCl [Metformin HCl] 500 mg PO BID 04/10/17 [History] Depo-Estradiol 5 mg IM WEEKLY 04/11/17 [History] Past Medical History - Past Health History Medical/Surgical History: Denies Medical/Surgical History HEENT History: Reports: Impaired Vision Cardiovascular History: Reports: High Cholesterol, Hypertension Respiratory History: Reports: Asthma, COPD Other Respiratory History: has daily inhaler Gastrointestinal History: Reports: Other (See Below) Genitourinary History: Reports: UTI, Recurrent Other Genitourinary History: in the past- not the last 2 years Musculoskeletal History: Reports: Arthritis, Fracture, Other (See Below) Other Musculoskeletal History: hx of fx left elbow, has frequent legs cramps Neurological History: Reports: Concussion, Seizure Other Neuro History: hx of seizures 10 years ago- stopped- none since- no medication Psychiatric History: Reports: Anxiety, Depression, Suicide Attempt, Other (See Below) Other Psychiatric History: states is transgender Endocrine/Metabolic History: Reports: Diabetes, Type II, Obesity/BMI 30+ Hematologic History: Reports: None Immunologic History: Reports: None Oncologic (Cancer) History: Reports: None Dermatologic History: Reports: None - Infectious Disease History Infectious Disease History: Reports: Chicken Pox - Past Surgical History Head Surgeries/Procedures: Reports: None HEENT Surgical History: Reports: Myringotomy w Tube(s) Other HEENT Surgeries/Procedures: facial cyst removed, ear surgery GI Surgical History: Reports: Other (See Below) Other GI Surgeries/Procedures: anal surgery for recurrent fistula Social & Family History - Family History Family Medical History: Noncontributory - Caffeine Use Caffeine Use: Reports: None Caffeine Use Comment: 52 ounces/day - Living Situation & Occupation Living situation: Reports: Occupation: Employed ED ROS GENERAL - Review of Systems Review Of Systems: ROS reveals no pertinent complaints other than HPI. ED EXAM, GENERAL - Physical Exam Exam: See Below Course - Vital Signs Last Recorded V/S: Last Vital Signs Temp 97.0 F 10/08/17 01:50 Pulse 82 10/08/17 01:50 Resp 18 10/08/17 01:50 BP 141/86 H 10/08/17 01:50 Pulse Ox 96 10/08/17 01:50 - Orders/Labs/Meds Meds: Medications Discontinued Medications Generic Name Dose Route Start Last Admin Trade Name Freq PRN Reason Stop Dose Admin Benzocaine 2 each 10/08/17 02:08 10/08/17 02:22 Hurricaine One 20% MUCMEM 10/08/17 02:09 2 each ONETIME ONE Administration Ketorolac Tromethamine 60 mg 10/08/17 02:07 10/08/17 02:20 Toradol IM 10/08/17 02:08 60 mg ONETIME ONE Administration Lidocaine HCl 15 ml 10/08/17 02:08 10/08/17 02:22 Xylocaine 2% Viscous PO 10/08/17 02:09 15 ml ONETIME ONE Administration Departure - Departure Time of Disposition: 02:51 Disposition: Home, Self-Care 01 Condition: Good Clinical Impression: Dental abscess, Dental caries - Discharge Information Referrals: PCP,None [Primary Care Provider] - Forms: ED Department Discharge Additional Instructions: My general discharge The following information is given to patients seen in the emergency department who are being discharged to home. This information is to outline your options for follow-up care. We provide all patients seen in our emergency department with a follow-up referral. The need for follow-up, as well as the timing and circumstances, are variable depending upon the specifics of your emergency department visit. If you don't have a primary care physician on staff, we will provide you with a referral. We always advise you to contact your personal physician following an emergency department visit to inform them of the circumstance of the visit and for follow-up with them and/or the need for any referrals to a consulting specialist. The emergency department will also refer you to a specialist when appropriate. This referral assures that you have the opportunity for follow-up care with a specialist. All of these measure are taken in an effort to provide you with optimal care, which includes your follow-up. Under all circumstances we always encourage you to contact your private physician who remains a resource for coordinating your care. When calling for follow-up care, please make the office aware that this follow-up is from your recent emergency room visit. If for any reason you are refused follow-up, please contact the [facility] Emergency Department at and asked to speak to the emergency department charge nurse. [facility] [address] [place] [id number] [address] Take antibiotics as prescribed. Follow-up with dentist as soon as he can financially do so. Return to emergency department if they have any new or worsening symptoms.
[2017-10-08] MEDS ORDERED: Ketorolac 60 MG/2 ML SDV IM ONE (02:07)
[2017-10-08] MEDS ORDERED: Benzocaine 20% Topical Spray UD MUCMEM ONE (02:08)
[2017-10-08] MEDS ORDERED: Lidocaine 2% Viscous Solution 15 ML Cup PO ONE (02:08)
[2017-10-08 03:01] VITALS: BP 148/87
== END 2017-10-08 03:36 | disposition home or self-care (01) ==
LOC: MW.ED 01:41 → EDSEX 01:41 → MW.ED 03:36
DX: K04.7 Periapical abscess without sinus (principal); K02.9 Dental caries, unspecified; E78.00 Pure hypercholesterolemia, unspecified; I10 Essential (primary) hypertension; J44.9 Chronic obstructive pulmonary disease, unspecified; E11.9 Type 2 diabetes mellitus without complications; Z88.1 Allergy status to other antibiotic agents; Z87.440 Personal history of urinary (tract) infections; Z79.899 Other long term (current) drug therapy
CPT/HCPCS: 96372; 99283; A9270; J1885

== ENCOUNTER 2017-10-08 16:15 | Emergency (ER) | payer MEDICAID ==
[2017-10-08] MEDS ORDERED: methylPREDNISolone Sodium Succinate 125 MG/2 ML SDV IM ONE (16:36)
--- NOTE | 2017-10-08 16:46 | EDM.PDOC ---
ED HPI GENERAL MEDICAL PROBLEM - General Chief Complaint: ENT Problem Stated Complaint: RT SIDE OF PT'S FACE IS SWOLLEN Time Seen by Provider: 10/08/17 16:37 Source of Information: Reports: Patient History Limitations: Reports: No Limitations - History of Present Illness INITIAL COMMENTS - FREE TEXT/NARRATIVE: HISTORY AND PHYSICAL: []37-year-old transgender female presents with facial swelling History of Present Illness: []Patient was seen yesterday in the emergency department and started on Augmentin antibiotic for a dental abscess Today's face is swollen to see from her right eye due to the edema Review of Systems: As per history of present illness and below otherwise all systems reviewed and negative. Past medical history: As per history of present illness and as reviewed below otherwise noncontributory. Surgical history: As per history of present illness and as reviewed below otherwise noncontributory. Social history: No reported history of drug or alcohol abuse. Family history: As per history of present illness and as reviewed below otherwise noncontributory. Physical exam: Alert and oriented answering questions appropriately in full sentences without any shortness of breath. Non--Toxic in appearance. HEENT: Atraumatic, normocehpalic, pupils reactive, negative for conjunctival pallor or scleral icterus, mucous membranes moist, throat clear, neck supple, nontender, trachea midline. Lungs: Clear to auscultation, breath sounds equal bilaterally, chest non tender. Heart: S1S2, regular, negative for clicks, rubs, or JVD. Abdomen: Soft, nondistended, nontender. Negative for masses or hepatossplenmegaly. Negative for costovertebral tenderness. Pelvis: Stable nontender. Genitourinary: Deferred. Rectal: Deferred Extremities: Atraumatic, negative for cords or calf pain. Neurovascular unremarkable. Neuro: Awake, alert, oriented. Cranial nerves II through XII unremarkable. Cerebellum unremarkable. Motor and sensory unremarkable throughout. Exam nonfocal. Diagnostics: [] Therapeutics: []Solu-Medrol 125 Impression: []Abscess right tooth Plan: []Discharge Definitive disposition and diagnosis as appropriate pending reevaluation and review of above. Onset: Gradual Duration: Day(s):, Getting Worse Location: Reports: Face Quality: Reports: Ache Severity: Moderate Improves with: Reports: None Worsens with: Reports: None right dental Pain Score (Numeric/FACES): 10 - Related Data Allergies Allergy/AdvReac Type Severity Reaction Status Date / Time ceftriaxone sodium Allergy Cannot Verified 10/08/17 16:39 [From Rocephin] Remember levofloxacin [From Levaquin] Allergy Hives Verified 10/08/17 16:39 tetanus and diphtheria Allergy Swelling Verified 10/08/17 16:39 toxoids [tetanus & diphtheria toxoids] Home Meds: Home Meds Spironolactone [Aldactone] 100 mg PO BID 01/12/17 [History] atorvaSTATin [Lipitor] 40 mg PO BEDTIME 03/06/17 [History] Albuterol Sulfate [Proair Hfa] 2 puff INH ASDIRECTED PRN 04/10/17 [History] Empagliflozin [Jardiance] 10 mg PO ASDIRECTED 04/10/17 [History] Exenatide Microspheres [Bydureon Pen] 2 mg SUBCUT WEEKLY 04/10/17 [History] Naproxen 1 tab PO ASDIRECTED PRN 04/10/17 [History] Progesterone,Micronized [Progesterone] 100 mg PO DAILY 04/10/17 [History] Zolpidem Tartrate 10 mg PO BEDTIME 04/10/17 [History] metFORMIN HCl [Metformin HCl] 500 mg PO BID 04/10/17 [History] Depo-Estradiol 5 mg IM WEEKLY 04/11/17 [History] methylPREDNISolone [Medrol] 4 mg PO ASDIRECTED #1 dosepk 10/08/17 [Rx] Past Medical History - Past Health History Medical/Surgical History: Denies Medical/Surgical History HEENT History: Reports: Impaired Vision Cardiovascular History: Reports: High Cholesterol, Hypertension Respiratory History: Reports: Asthma, COPD Other Respiratory History: has daily inhaler Gastrointestinal History: Reports: Other (See Below) Genitourinary History: Reports: UTI, Recurrent Other Genitourinary History: in the past- not the last 2 years Musculoskeletal History: Reports: Arthritis, Fracture, Other (See Below) Other Musculoskeletal History: hx of fx left elbow, has frequent legs cramps Neurological History: Reports: Concussion, Seizure Other Neuro History: hx of seizures 10 years ago- stopped- none since- no medication Psychiatric History: Reports: Anxiety, Depression, Suicide Attempt, Other (See Below) Other Psychiatric History: states is transgender Endocrine/Metabolic History: Reports: Diabetes, Type II, Obesity/BMI 30+ Hematologic History: Reports: None Immunologic History: Reports: None Oncologic (Cancer) History: Reports: None Dermatologic History: Reports: None - Infectious Disease History Infectious Disease History: Reports: Chicken Pox - Past Surgical History Head Surgeries/Procedures: Reports: None HEENT Surgical History: Reports: Myringotomy w Tube(s) Other HEENT Surgeries/Procedures: facial cyst removed, ear surgery GI Surgical History: Reports: Other (See Below) Other GI Surgeries/Procedures: anal surgery for recurrent fistula Social & Family History - Family History Family Medical History: Noncontributory - Caffeine Use Caffeine Use: Reports: None Caffeine Use Comment: 52 ounces/day - Living Situation & Occupation Living situation: Reports: Occupation: Employed ED ROS ENT - Review of Systems Review Of Systems: ROS reveals no pertinent complaints other than HPI. ED EXAM, ENT - Physical Exam Exam: See Below (see dictation) Course - Vital Signs Last Recorded V/S: Last Vital Signs Temp 37.1 C 10/08/17 16:39 Pulse 93 10/08/17 16:39 Resp 20 10/08/17 16:39 BP 195/97 H 10/08/17 16:39 Pulse Ox 98 10/08/17 16:39 - Orders/Labs/Meds Meds: Medications Discontinued Medications Generic Name Dose Route Start Last Admin Trade Name Jayesh PRBrando Reason Stop Dose Admin Methylprednisolone Sodium Succinate 125 mg 10/08/17 16:36 10/08/17 16:55 Solu-Medrol IM 10/08/17 16:37 125 mg ONETIME ONE Administration Departure - Departure Time of Disposition: 17:12 Disposition: Home, Self-Care 01 Condition: Good Clinical Impression: Dental abscess Cellulitis Qualifiers: Site of cellulitis: face Qualified Code(s): L03.211 - Cellulitis of face - Discharge Information Prescriptions: methylPREDNISolone [Medrol] 4 mg PO ASDIRECTED #1 dosepk Instructions: Eye Foreign Body, [id number], Nasal Foreign Body, [id number] Referrals: PCP,None [Primary Care Provider] - Forms: ED Department Discharge Additional Instructions: The following information is given to patients seen in the emergency department who are being discharged to home. This information is to outline your options for follow-up care. We provide all patients seen in our emergency department with a follow-up referral. The need for follow-up, as well as the timing and circumstances, are variable depending upon the specifics of your emergency department visit. If you don't have a primary care physician on staff, we will provide you with a referral. We always advise you to contact your personal physician following an emergency department visit to inform them of the circumstance of the visit and for follow-up with them and/or the need for any referrals to a consulting specialist. The emergency department will also refer you to a specialist when appropriate. This referral assures that you have the opportunity for followup care with a specialist. All of these measure are taken in an effort to provide you with optimal care, which includes your followup. Under all circumstances we always encourage you to contact your private physician who remains a resource for coordinating your care. When calling for followup care, please make the office aware that this follow-up is from your recent emergency room visit. If for any reason you are refused follow-up, please contact the [facility] emergency department at and asked to speak to the emergency department charge nurse. Continue with your antibiotic as prescribed yesterday Medrol dose pack prescribed See your dentist for resolution Ascending of symptoms return for reevaluation
[2017-10-08 17:18] VITALS: BP 189/89
== END 2017-10-08 17:21 | disposition home or self-care (01) ==
LOC: MW.ED 16:15
DX: K04.7 Periapical abscess without sinus (principal); E78.00 Pure hypercholesterolemia, unspecified; I10 Essential (primary) hypertension; J44.9 Chronic obstructive pulmonary disease, unspecified; Z79.899 Other long term (current) drug therapy; Z88.8 Allergy status to other drugs, medicaments and biological substances; Z88.1 Allergy status to other antibiotic agents
CPT/HCPCS: 96372; 99282; J2930

== ENCOUNTER 2017-11-16 17:22 | Emergency (ER) | payer MEDICAID ==
[2017-11-16] MEDS ORDERED: Ketorolac 60 MG/2 ML SDV IM ONE (17:58)
--- NOTE | 2017-11-16 18:01 | EDM.PDOC ---
ED HPI GENERAL MEDICAL PROBLEM - General Chief Complaint: Headache Stated Complaint: HEADACHE ISSUES Time Seen by Provider: 11/16/17 17:30 Source of Information: Reports: Patient History Limitations: Reports: No Limitations - History of Present Illness INITIAL COMMENTS - FREE TEXT/NARRATIVE: HISTORY AND PHYSICAL: History of present illness: Patient is a 37-year-old female who presents to the emergency room with complaints of a migraine headache that has not been relieved with over-the- counter products. She states that she had fallen a week ago and hit her head without loss of consciousness but since has had intermittent migraine that she is concerned about today. She reports that she has a history of migraines with aura. Currently she denies any light or noise sensitivity she has been eating and drinking appropriately. Denies any nausea, vomiting, diarrhea or constipation. (Please note that patient was born male; identifies as female and has gone through the legalities of changing her name.) Review of systems: As per history of present illness and below otherwise all systems reviewed and negative. Past medical history: As per history of present illness and as reviewed below otherwise noncontributory. Surgical history: As per history of present illness and as reviewed below otherwise noncontributory. Social history: No reported history of drug or alcohol abuse. Family history: As per history of present illness and as reviewed below otherwise noncontributory. Physical exam: General: Well-developed and well-nourished 37-year-old female. Alert and oriented. Nontoxic appearing and in no acute distress. HEENT: Atraumatic, normocephalic, pupils equal and reactive bilaterally, negative for conjunctival pallor or scleral icterus, mucous membranes moist, throat clear, neck supple, nontender, trachea midline. No drooling or trismus noted. No meningeal signs Lungs: Clear to auscultation, breath sounds equal bilaterally, chest nontender. Heart: S1S2, regular rate and rhythm without overt murmur Abdomen: Soft, nondistended, nontender. Negative for masses or hepatosplenomegaly. Negative for costovertebral tenderness. Pelvis: Stable nontender. Genitourinary: Deferred. Rectal: Deferred. Skin: Intact, warm, dry. No lesions or rashes noted. Extremities: Atraumatic, negative for cords or calf pain. Neurovascular unremarkable. Neuro: Awake, alert, oriented. Cranial nerves II through XII unremarkable. Cerebellum unremarkable. Motor and sensory unremarkable throughout. Exam nonfocal. Notes: Patient does not have a [employer] company driver therefore will not be able to give her migraine cocktail. She does not have any nausea. Toradol IM is ordered. We did discuss doing a head CT as this is a week long injury. She is requesting that a CT be done at this time. Head CT is normal with no evidence of bleeding or fracture. Some information was shared with the patient. Supportive care measures were reviewed and discussed. She voices understanding and is agreeable to plan of care. Diagnostics: Head CT Therapeutics: Toradol Prescription: None Impression: Migraine headache Plan: 1. Head CT is normal. 2. Continue with Tylenol and/or ibuprofen as needed for pain management. 3. Follow-up with your primary caregiver in the next 1-2 days. Return to the ED as needed and as discussed. Definitive disposition and diagnosis as appropriate pending reevaluation and review of above. Headache Pain Score (Numeric/FACES): 5 - Related Data Allergies Allergy/AdvReac Type Severity Reaction Status Date / Time ceftriaxone sodium Allergy Cannot Verified 11/16/17 17:37 [From Rocephin] Remember levofloxacin [From Levaquin] Allergy Hives Verified 11/16/17 17:37 tetanus and diphtheria Allergy Swelling Verified 11/16/17 17:37 toxoids [tetanus & diphtheria toxoids] Home Meds: Home Meds Spironolactone [Aldactone] 100 mg PO BID 01/12/17 [History] atorvaSTATin [Lipitor] 40 mg PO BEDTIME 03/06/17 [History] Albuterol Sulfate [Proair Hfa] 2 puff INH ASDIRECTED PRN 04/10/17 [History] Empagliflozin [Jardiance] 10 mg PO ASDIRECTED 04/10/17 [History] Exenatide Microspheres [Bydureon Pen] 2 mg SUBCUT WEEKLY 04/10/17 [History] Naproxen 1 tab PO ASDIRECTED PRN 04/10/17 [History] Progesterone,Micronized [Progesterone] 100 mg PO DAILY 04/10/17 [History] metFORMIN HCl [Metformin HCl] 500 mg PO BID 04/10/17 [History] Depo-Estradiol 5 mg IM WEEKLY 04/11/17 [History] Past Medical History - Past Health History Medical/Surgical History: Denies Medical/Surgical History HEENT History: Reports: Impaired Vision Cardiovascular History: Reports: High Cholesterol, Hypertension Respiratory History: Reports: Asthma, COPD Other Respiratory History: has daily inhaler Gastrointestinal History: Reports: Other (See Below) Genitourinary History: Reports: UTI, Recurrent Other Genitourinary History: in the past- not the last 2 years Musculoskeletal History: Reports: Arthritis, Fracture, Other (See Below) Other Musculoskeletal History: hx of fx left elbow, has frequent legs cramps Neurological History: Reports: Concussion, Seizure Other Neuro History: hx of seizures 10 years ago- stopped- none since- no medication Psychiatric History: Reports: Anxiety, Depression, Suicide Attempt, Other (See Below) Other Psychiatric History: states is transgender Endocrine/Metabolic History: Reports: Diabetes, Type II, Obesity/BMI 30+ Hematologic History: Reports: None Immunologic History: Reports: None Oncologic (Cancer) History: Reports: None Dermatologic History: Reports: None - Infectious Disease History Infectious Disease History: Reports: Chicken Pox - Past Surgical History Head Surgeries/Procedures: Reports: None HEENT Surgical History: Reports: Myringotomy w Tube(s) Other HEENT Surgeries/Procedures: facial cyst removed, ear surgery GI Surgical History: Reports: Other (See Below) Other GI Surgeries/Procedures: anal surgery for recurrent fistula Social & Family History - Family History Family Medical History: Noncontributory - Tobacco Use Smoking Status *Q: Current Every Day Smoker Years of Tobacco use: 25 Packs/Tins Daily: 1 - Caffeine Use Caffeine Use: Reports: None Caffeine Use Comment: 52 ounces/day - Recreational Drug Use Recreational Drug Use: No - Living Situation & Occupation Living situation: Reports: Occupation: Employed ED ROS GENERAL - Review of Systems Review Of Systems: ROS reveals no pertinent complaints other than HPI. ED EXAM, HEAD INJURY - Physical Exam Exam: See Below (See dictation) Course - Vital Signs Last Recorded V/S: Last Vital Signs Temp 95.2 F L 11/16/17 17:34 Pulse 96 11/16/17 17:34 Resp 18 11/16/17 17:34 BP 128/81 11/16/17 17:34 Pulse Ox 96 11/16/17 17:34 - Orders/Labs/Meds Orders: Active Orders 24 hr Category Date Time Status Head wo Cont [CT] Stat Exams 11/16/17 17:58 Ordered Meds: Medications Discontinued Medications Generic Name Dose Route Start Last Admin Trade Name Jayesh PRN Reason Stop Dose Admin Ketorolac Tromethamine 60 mg 11/16/17 17:58 11/16/17 18:13 Toradol IM 11/16/17 17:59 60 mg ONETIME ONE Administration Departure - Departure Time of Disposition: 19:08 Disposition: Home, Self-Care 01 Clinical Impression: Migraine - Discharge Information Instructions: Migraine Headache, [id number] Referrals: PCP,Unknown [Primary Care Provider] - Forms: ED Department Discharge Additional Instructions: The following information is given to patients seen in the emergency department who are being discharged to home. This information is to outline your options for follow-up care. We provide all patients seen in our emergency department with a follow-up referral. The need for follow-up, as well as the timing and circumstances, are variable depending upon the specifics of your emergency department visit. If you don't have a primary care physician on staff, we will provide you with a referral. We always advise you to contact your personal physician following an emergency department visit to inform them of the circumstance of the visit and for follow-up with them and/or the need for any referrals to a consulting specialist. The emergency department will also refer you to a specialist when appropriate. This referral assures that you have the opportunity for follow-up care with a specialist. All of these measure are taken in an effort to provide you with optimal care, which includes your follow-up. Under all circumstances we always encourage you to contact your private physician who remains a resource for coordinating your care. When calling for follow-up care, please make the office aware that this follow-up is from your recent emergency room visit. If for any reason you are refused follow-up, please contact the [facility] Emergency Department at and asked to speak to the emergency department charge nurse. [facility] [address] [place] [id number] is normal. 2. Continue with Tylenol and/or ibuprofen as needed for pain management. 3. Follow-up with your primary caregiver in the next 1-2 days. Return to the ED as needed and as discussed. - My Orders Last 24 Hours: My Active Orders 11/16/17 17:58 Head wo Cont [CT] Stat - Assessment/Plan Last 24 Hours: My Active Orders 11/16/17 17:58 Head wo Cont [CT] Stat
[2017-11-16 19:26] VITALS: BP 121/74
--- NOTE | 2017-11-19 15:07 | CT ---
EXAM DATE: 11/16/17 PATIENT'S AGE: 37 Patient: FLY MOORE Facility: [place], [place] Site . Site : 1980 Study: CT Head [id number]/[id number] 6:54:32 PM Ordering Physician: Doctor Ocampo Final Report: INDICATION: fell 1-2 feet and hit her head last week, been having headaches since TECHNIQUE: CT Head without i.v. contrast. CONTRAST: None COMPARISON: None FINDINGS: CSF space: The ventricles are normal for age. Brain: No evidence of mass, acute infarction or hemorrhage is seen. No mass- effect or midline shift is seen. The brain parenchyma is otherwise normal in appearance with preservation of the corona-white matter junction. Calvarium: The visualized paranasal sinuses are well aerated. The mastoid air cells are clear. The visualized orbits are grossly unremarkable. The calvarium is unremarkable in appearance with no fractures identified. IMPRESSION: 1. No evidence of acute infarction, intracranial hemorrhage, or mass-effect seen. Please note that all CT scans at this facility use dose modulation, iterative reconstruction, and/or weight-based dosing when appropriate to reduce radiation dose to as low as reasonably achievable. Dictated by: Pardeep Tatum MD @ 11/16/2017 18:59:28 (Electronic Signature) Report Signed by Proxy. [email or web address]
== END 2017-11-16 19:25 | disposition home or self-care (01) ==
LOC: MW.ED 17:22
DX: G43.909 Migraine, unspecified, not intractable, without status migrainosus (principal); E11.9 Type 2 diabetes mellitus without complications; F17.210 Nicotine dependence, cigarettes, uncomplicated; F41.9 Anxiety disorder, unspecified; F32.9 Major depressive disorder, single episode, unspecified; I10 Essential (primary) hypertension; Z88.1 Allergy status to other antibiotic agents; Z88.7 Allergy status to serum and vaccine; Z79.84 Long term (current) use of oral hypoglycemic drugs
CPT/HCPCS: 70450; 96372; 99284; J1885

== ENCOUNTER 2017-11-24 20:22 | Emergency (ER) | payer MEDICAID ==
[2017-11-24 20:37] VITALS: BP 121/89
--- NOTE | 2017-11-24 20:40 | EDM.PDOC ---
ED HPI GENERAL MEDICAL PROBLEM - General Chief Complaint: ENT Problem Stated Complaint: TOOTH PAIN Time Seen by Provider: 11/24/17 20:37 Source of Information: Reports: Patient - History of Present Illness INITIAL COMMENTS - FREE TEXT/NARRATIVE: HISTORY AND PHYSICAL: History of present illness: Patient with poor dentition presents with dental pain 4 out of 10 related is tolerable nonradiating lower jawline multiple dental caries and severe decay she has followed with dentist was unable to be treated due to finances Hence definitive treatment is on hold she will need these teeth extracted at some point one finances are better for her No fever nausea vomiting chills sweats Review of systems: As per history of present illness and below otherwise all systems reviewed and negative. Past medical history: As per history of present illness and as reviewed below otherwise noncontributory. Surgical history: As per history of present illness and as reviewed below otherwise noncontributory. Social history: No reported history of drug or alcohol abuse. Family history: As per history of present illness and as reviewed below otherwise noncontributory. Physical exam: HEENT: Atraumatic, normocephalic, pupils reactive, negative for conjunctival pallor or scleral icterus, mucous membranes moist, throat clear, neck supple, nontender, trachea midline. Multiple dental caries and tooth decay tender along left lower jawline mild swelling Lungs: Clear to auscultation, breath sounds equal bilaterally, chest nontender. Heart: S1S2, regular, negative for clicks, rubs, or JVD. Abdomen: Soft, nondistended, nontender. Negative for masses or hepatosplenomegaly. Negative for costovertebral tenderness. Pelvis: Stable nontender. Genitourinary: Deferred. Rectal: Deferred. Extremities: Atraumatic, negative for cords or calf pain. Neurovascular unremarkable. Neuro: Awake, alert, oriented. Cranial nerves II through XII unremarkable. Cerebellum unremarkable. Motor and sensory unremarkable throughout. Exam nonfocal. Diagnostics: [Clinical ] Therapeutics: [Rocephin 1 g IM Amoxicillin 875 by mouth twice a day #20 no refill ] Impression: [Dental pain ] Definitive disposition and diagnosis as appropriate pending reevaluation and review of above. dental pain Pain Score (Numeric/FACES): 5 - Related Data Allergies Allergy/AdvReac Type Severity Reaction Status Date / Time ceftriaxone sodium Allergy Cannot Verified 11/24/17 20:35 [From Rocephin] Remember levofloxacin [From Levaquin] Allergy Hives Verified 11/24/17 20:35 tetanus and diphtheria Allergy Swelling Verified 11/24/17 20:35 toxoids [tetanus & diphtheria toxoids] Home Meds: Home Meds Spironolactone [Aldactone] 100 mg PO BID 01/12/17 [History] atorvaSTATin [Lipitor] 40 mg PO BEDTIME 03/06/17 [History] Albuterol Sulfate [Proair Hfa] 2 puff INH ASDIRECTED PRN 04/10/17 [History] Empagliflozin [Jardiance] 10 mg PO ASDIRECTED 04/10/17 [History] Exenatide Microspheres [Bydureon Pen] 2 mg SUBCUT WEEKLY 04/10/17 [History] Naproxen 1 tab PO ASDIRECTED PRN 04/10/17 [History] Progesterone,Micronized [Progesterone] 100 mg PO DAILY 04/10/17 [History] metFORMIN HCl [Metformin HCl] 500 mg PO BID 04/10/17 [History] Depo-Estradiol 5 mg IM WEEKLY 04/11/17 [History] Past Medical History - Past Health History Medical/Surgical History: Denies Medical/Surgical History HEENT History: Reports: Impaired Vision Cardiovascular History: Reports: High Cholesterol, Hypertension Respiratory History: Reports: Asthma, COPD Other Respiratory History: has daily inhaler Gastrointestinal History: Reports: Other (See Below) Genitourinary History: Reports: UTI, Recurrent Other Genitourinary History: in the past- not the last 2 years Musculoskeletal History: Reports: Arthritis, Fracture, Other (See Below) Other Musculoskeletal History: hx of fx left elbow, has frequent legs cramps Neurological History: Reports: Concussion, Seizure Other Neuro History: hx of seizures 10 years ago- stopped- none since- no medication Psychiatric History: Reports: Anxiety, Depression, Suicide Attempt, Other (See Below) Other Psychiatric History: states is transgender Endocrine/Metabolic History: Reports: Diabetes, Type II, Obesity/BMI 30+ Hematologic History: Reports: None Immunologic History: Reports: None Oncologic (Cancer) History: Reports: None Dermatologic History: Reports: None - Infectious Disease History Infectious Disease History: Reports: Chicken Pox - Past Surgical History Head Surgeries/Procedures: Reports: None HEENT Surgical History: Reports: Myringotomy w Tube(s) Other HEENT Surgeries/Procedures: facial cyst removed, ear surgery GI Surgical History: Reports: Other (See Below) Other GI Surgeries/Procedures: anal surgery for recurrent fistula Social & Family History - Family History Family Medical History: Noncontributory - Caffeine Use Caffeine Use: Reports: None Caffeine Use Comment: 52 ounces/day - Living Situation & Occupation Living situation: Reports: Occupation: Employed ED ROS GENERAL - Review of Systems Review Of Systems: See Below ED EXAM, GENERAL - Physical Exam Exam: See Below Course - Vital Signs Last Recorded V/S: Last Vital Signs Temp 97.2 F 11/24/17 20:35 Pulse 96 11/24/17 20:35 Resp 18 11/24/17 20:35 BP 121/89 11/24/17 20:35 Pulse Ox 97 11/24/17 20:35 Departure - Departure Time of Disposition: 20:39 Disposition: Home, Self-Care 01 Condition: Good Clinical Impression: Pain due to dental caries - Discharge Information Referrals: PCP,None [Primary Care Provider] - Additional Instructions: The following information is given to patients seen in the emergency department who are being discharged to home. This information is to outline your options for follow-up care. We provide all patients seen in our emergency department with a follow-up referral. The need for follow-up, as well as the timing and circumstances, are variable depending upon the specifics of your emergency department visit. If you don't have a primary care physician on staff, we will provide you with a referral. We always advise you to contact your personal physician following an emergency department visit to inform them of the circumstance of the visit and for follow-up with them and/or the need for any referrals to a consulting specialist. The emergency department will also refer you to a specialist when appropriate. This referral assures that you have the opportunity for follow-up care with a specialist. All of these measure are taken in an effort to provide you with optimal care, which includes your follow-up. Under all circumstances we always encourage you to contact your private physician who remains a resource for coordinating your care. When calling for follow-up care, please make the office aware that this follow-up is from your recent emergency room visit. If for any reason you are refused follow-up, please contact the [facility] emergency department at and asked to speak to the emergency department charge nurse.
== END 2017-11-24 21:06 | disposition home or self-care (01) ==
LOC: MW.ED 20:22
DX: K02.9 Dental caries, unspecified (principal); I10 Essential (primary) hypertension; E11.9 Type 2 diabetes mellitus without complications; E78.00 Pure hypercholesterolemia, unspecified; Z79.84 Long term (current) use of oral hypoglycemic drugs; Z79.899 Other long term (current) drug therapy; Z88.1 Allergy status to other antibiotic agents; Z88.7 Allergy status to serum and vaccine
CPT/HCPCS: 99282

== ENCOUNTER 2017-12-01 21:24 | Emergency (ER) | payer MEDICAID ==
--- NOTE | 2017-12-01 21:56 | EDM.PDOC ---
ED HPI GENERAL MEDICAL PROBLEM - General Chief Complaint: Upper Extremity Injury/Pain Stated Complaint: RIGHT HAND PAIN Time Seen by Provider: 12/01/17 21:34 - History of Present Illness INITIAL COMMENTS - FREE TEXT/NARRATIVE: HISTORY AND PHYSICAL: History of present illness: Patient 37-year-old female that presents with concern of acute right hand injury when she struck a wall with her fist she denies other trauma or concern Review of systems: As per history of present illness and below otherwise all systems reviewed and negative. Past medical history: As per history of present illness and as reviewed below otherwise noncontributory. Surgical history: As per history of present illness and as reviewed below otherwise noncontributory. Social history: No reported history of drug or alcohol abuse. Family history: As per history of present illness and as reviewed below otherwise noncontributory. Physical exam: HEENT: Atraumatic, normocephalic, pupils reactive, negative for conjunctival pallor or scleral icterus, mucous membranes moist, throat clear, neck supple, nontender, trachea midline. Lungs: Clear to auscultation, breath sounds equal bilaterally, chest nontender. Heart: S1S2, regular, negative for clicks, rubs, or JVD. Abdomen: Soft, nondistended, nontender. Negative for masses or hepatosplenomegaly. Negative for costovertebral tenderness. Pelvis: Stable nontender. Genitourinary: Deferred. Rectal: Deferred. Extremities: Right Hand has mild tenderness over the dorsal aspect is no gross deformity no crepitation CMS neurovascular exam is unremarkable Neuro: Awake, alert, oriented. Cranial nerves II through XII unremarkable. Cerebellum unremarkable. Motor and sensory unremarkable throughout. Exam nonfocal. Diagnostics: X-ray right hand Therapeutics: To be determined Impression: #1 acute right hand injury ( blunt force trauma) Definitive disposition and diagnosis as appropriate pending reevaluation and review of above. - Related Data Allergies Allergy/AdvReac Type Severity Reaction Status Date / Time ceftriaxone sodium Allergy Cannot Verified 11/24/17 20:35 [From Rocephin] Remember levofloxacin [From Levaquin] Allergy Hives Verified 11/24/17 20:35 tetanus and diphtheria Allergy Swelling Verified 11/24/17 20:35 toxoids [tetanus & diphtheria toxoids] Home Meds: Home Meds Spironolactone [Aldactone] 100 mg PO BID 01/12/17 [History] atorvaSTATin [Lipitor] 40 mg PO BEDTIME 03/06/17 [History] Albuterol Sulfate [Proair Hfa] 2 puff INH ASDIRECTED PRN 04/10/17 [History] Empagliflozin [Jardiance] 10 mg PO ASDIRECTED 04/10/17 [History] Exenatide Microspheres [Bydureon Pen] 2 mg SUBCUT WEEKLY 04/10/17 [History] Naproxen 1 tab PO ASDIRECTED PRN 04/10/17 [History] Progesterone,Micronized [Progesterone] 100 mg PO DAILY 04/10/17 [History] metFORMIN HCl [Metformin HCl] 500 mg PO BID 04/10/17 [History] Depo-Estradiol 5 mg IM WEEKLY 04/11/17 [History] Past Medical History - Past Health History Medical/Surgical History: Denies Medical/Surgical History HEENT History: Reports: Impaired Vision Cardiovascular History: Reports: High Cholesterol, Hypertension Respiratory History: Reports: Asthma, COPD Other Respiratory History: has daily inhaler Gastrointestinal History: Reports: Other (See Below) Genitourinary History: Reports: UTI, Recurrent Other Genitourinary History: in the past- not the last 2 years Musculoskeletal History: Reports: Arthritis, Fracture, Other (See Below) Other Musculoskeletal History: hx of fx left elbow, has frequent legs cramps Neurological History: Reports: Concussion, Seizure Other Neuro History: hx of seizures 10 years ago- stopped- none since- no medication Psychiatric History: Reports: Anxiety, Depression, Suicide Attempt, Other (See Below) Other Psychiatric History: states is transgender Endocrine/Metabolic History: Reports: Diabetes, Type II, Obesity/BMI 30+ Hematologic History: Reports: None Immunologic History: Reports: None Oncologic (Cancer) History: Reports: None Dermatologic History: Reports: None - Infectious Disease History Infectious Disease History: Reports: Chicken Pox - Past Surgical History Head Surgeries/Procedures: Reports: None HEENT Surgical History: Reports: Myringotomy w Tube(s) Other HEENT Surgeries/Procedures: facial cyst removed, ear surgery GI Surgical History: Reports: Other (See Below) Other GI Surgeries/Procedures: anal surgery for recurrent fistula Social & Family History - Family History Family Medical History: Noncontributory - Caffeine Use Caffeine Use: Reports: None Caffeine Use Comment: 52 ounces/day - Living Situation & Occupation Living situation: Reports: Occupation: Employed Review of Systems - Review of Systems Review Of Systems: ROS reveals no pertinent complaints other than HPI. ED EXAM, GENERAL - Physical Exam Exam: See Below (dictation) Course - Orders/Labs/Meds Orders: Active Orders 24 hr Category Date Time Status Hand 2V Rt [CR] Stat Exams 12/01/17 21:37 Ordered Departure - Departure Time of Disposition: 21:55 Disposition: Home, Self-Care 01 Condition: Good Clinical Impression: Hand injury - Discharge Information *PRESCRIPTION DRUG MONITORING PROGRAM REVIEWED*: Not Applicable *COPY OF PRESCRIPTION DRUG MONITORING REPORT IN PATIENT [place]: Not Applicable Referrals: PCP,None [Primary Care Provider] - Additional Instructions: The following information is given to patients seen in the emergency department who are being discharged to home. This information is to outline your options for follow-up care. We provide all patients seen in our emergency department with a follow-up referral. The need for follow-up, as well as the timing and circumstances, are variable depending upon the specifics of your emergency department visit. If you don't have a primary care physician on staff, we will provide you with a referral. We always advise you to contact your personal physician following an emergency department visit to inform them of the circumstance of the visit and for follow-up with them and/or the need for any referrals to a consulting specialist. The emergency department will also refer you to a specialist when appropriate. This referral assures that you have the opportunity for followup care with a specialist. All of these measure are taken in an effort to provide you with optimal care, which includes your followup. Under all circumstances we always encourage you to contact your private physician who remains a resource for coordinating your care. When calling for followup care, please make the office aware that this follow-up is from your recent emergency room visit. If for any reason you are refused follow-up, please contact the [facility] emergency department at and asked to speak to the emergency department charge nurse. Follow-up primary medical doctor as needed as discussed Motrin/Tylenol as directed return as needed as discussed - My Orders Last 24 Hours: My Active Orders 12/01/17 21:37 Hand 2V Rt [CR] Stat - Assessment/Plan Last 24 Hours: My Active Orders 12/01/17 21:37 Hand 2V Rt [CR] Stat
[2017-12-01 22:29] VITALS: BP 122/79
--- NOTE | 2017-12-03 14:11 | CR ---
EXAM DATE: 12/01/17 PATIENT'S AGE: 37 Patient: FLY MOORE Facility: [place], [place] Site . Site : 1980 Study: XRay Extremity Right hand [id number] 10:14:14 PM Ordering Physician: Zia Grove Final Report: Indication: Pain Technique: Two views of the right hand were obtained. Comparison: None Findings: No acute fracture subluxation is identified. The joint spaces are well maintained. Impression: No acute fracture. Dictated by Tracie Taylor MD @ Dec 01 2017 10:18PM (Electronic Signature) Report Signed by Proxy. [id number]
== END 2017-12-01 22:29 | disposition home or self-care (01) ==
LOC: MW.ED 21:24
DX: S69.91XA Unspecified injury of right wrist, hand and finger(s), initial encounter (principal); I10 Essential (primary) hypertension; E66.9 Obesity, unspecified; J44.9 Chronic obstructive pulmonary disease, unspecified; Z88.8 Allergy status to other drugs, medicaments and biological substances; Z79.899 Other long term (current) drug therapy; W22.01XA Walked into wall, initial encounter
CPT/HCPCS: 73120-26-RT; 73120-RT; 99283